=== PATIENT | female | born 1945 | race African-American/Black ===

== ENCOUNTER → 2019-10-14 09:30 | Outpatient (CLI) | payer MEDICARE, SELFPAY ==
--- NOTE | ~2019-10-14 | CT_ITS ---
EXAMINATION: CT chest wo con DATE: 10/14/2019 09:51 INDICATION: Persistent cough TECHNIQUE: Computed tomography (CT) of the chest was performed without intravenous contrast. Automate d exposure control and iterative reconstruction technique were employed. Exam dose: 611.12 mGy-cm to juanjo exam DLP. COMPARISON: 10/31/2017 CT chest FINDINGS: There is cardiomegaly. Coronary artery calcification is noted. No pericardial effusion. No pleural effusion. No thoracic aortic aneurysm or dissection. No hilar or mediastinal mass lesion or lymphadenopathy. Included upper abdominal structures are unremarkable except for diverticulosis of the splenic flexure of the colon. There are patchy groundglass infiltrates bilaterally, predominating in the lower lobes, with mild upp er lobe involvement, left greater than right. There is mild discoid atelectasis or scarring in the li ngula and to a greater extent the medial segment of the middle lobe. Diffuse idiopathic skeletal hyperostosis of the thoracolumbar spine. There is prominent degenerative disc disease in the lower cervical spine. IMPRESSION: Nonspecific bilateral mild patchy groundglass infiltrates; bilateral pneumonia is sugges gildardo. Pulmonary edema, allergic alveolitis, aspiration and less likely pulmonary hemorrhage among the differential diagnostic considerations Cardiomegaly, coronary artery atherosclerosis Reviewed, dictated and finalized at [facility]. Reviewed, dictated and finalized at location [facility]. IMPRESSION: Nonspecific bilateral mild patchy groundglass infiltrates; bilater al pneumonia is suggested. Pulmonary edema, allergic alveolitis, aspiration and less likely pulmonary hemorrhage among the differential diagnostic considerati ons Cardiomegaly, coronary artery atherosclerosis
== END ==
PROVIDERS: PCP Family Medicine; Visit Provider Family Medicine
DX: R05 Cough (principal); R91.8 Other nonspecific abnormal finding of lung field; I25.10 Atherosclerotic heart disease of native coronary artery without angina pectoris; I51.7 Cardiomegaly
CPT/HCPCS: 71250

== ENCOUNTER → 2019-10-24 16:27 | Outpatient (CLI) | payer MEDICARE, SELFPAY ==
--- NOTE | ~2019-10-24 | XR_ITS ---
XR lumbar spine 2-3V 10/24/2019 16:55 Indication: Polyneuropathy. Back pain. Procedure: 3 views of the lumbar spine Comparison: No prior studies for comparison. Findings: There is disc narrowing at L4-5 and L5-S1. There is lower lumbar facet hypertrophy with gra de 1 spondylolisthesis at L4-5 secondary to facet degenerative change. No acute fracture or traumatic malalignment. Pedicles intact. Sacral foramen are symmetric. Impression: 1: Mild-moderate lower lumbar spondylosis with grade 1 degenerative spondylolisthesis at L4-5. Reviewed, dictated and finalized at location [facility]. Impression: 1: Mild-moderate lower lumbar spondylosis with grade 1 degenerative spondylolis thesis at L4-5.
== END ==
PROVIDERS: PCP Family Medicine; Visit Provider Family Medicine
DX: G62.9 Polyneuropathy, unspecified (principal); M47.816 Spondylosis without myelopathy or radiculopathy, lumbar region
CPT/HCPCS: 72100

== ENCOUNTER → 2020-02-13 12:58 | Outpatient (CLI) | payer MEDICARE, SELFPAY ==
--- NOTE | ~2020-02-13 | MR_ITS ---
EXAMINATION: MR brain/brain stem wo con DATE: 02/13/2020 13:33 INDICATION: Transient cerebral ischemia. Dizziness. TECHNIQUE: Magnetic resonance imaging (MRI) of the brain and brainstem was performed without intraven ous contrast. Sequences included sagittal and axial T1-weighted FSE, axial diffusion-weighted FS EPI, axial T2*-weighted GRE, axial T2-weighted FLAIR Propeller, and axial T2-weighted Propeller. Apparent diffusion coefficient (ADC) maps were created. COMPARISON: None. FINDINGS: There are scattered areas of nonspecific increased T2-weighted signal intensity in the cere bral white matter. There is no intracranial hemorrhage, acute infarction, or abnormal intracranial ma ss lesion. The ventricles are normal in size. The paranasal sinuses are clear. The mastoid air cells are normal. The orbits are normal. IMPRESSION: 1. Mild nonspecific cerebral white matter disease, which likely represents chronic small vessel ische jessica disease. Reviewed, dictated and finalized at location [facility]. 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
== END ==
PROVIDERS: PCP Family Medicine; Visit Provider Family Medicine
DX: G45.9 Transient cerebral ischemic attack, unspecified (principal); R90.82 White matter disease, unspecified
CPT/HCPCS: 70551

== ENCOUNTER 2024-10-13 08:40 | Outpatient (CLI) | payer MEDICARE, SELFPAY ==
--- NOTE | ~2024-10-13 | DEXA_ITS ---
Bone Density Report Name: EVERARDO BELTRE Age: 78 Sex: Female Ethnicity: White Date of : 1945 Indication: postmenopausal; screening for osteoporosis; hysterectomy; Referring Provider: YVAN, KAYLEE Crawford Study: Bone densitometry was performed. Exam Date: October 13, 2024 Accession number: [id number] Bone Density: Region BMD T-score Z-score Classification AP Spine(L1-L4) 1.221 1.6 4.1 Normal Femoral Neck (Left) 0.803 -0.4 1.8 Normal Total Hip (Left) 1.109 1.4 3.3 Normal Femoral Neck (Right) 0.803 -0.4 1.8 Normal Total Hip (Right) 1.108 1.4 3.3 Normal Total Hip Mean 1.108 1.4 3.3 Normal World Health Organization criteria for BMD impression classify patients as: Normal (T-score at or above -1.0), Osteopenia (T-score between -1.0 and -2.5), or Osteoporosis (T-score at or below -2.5). 10-year Fracture Risk: FRAX not reported because: All T-scores for Spine Total, Hip Total, Femoral Neck at or above -1.0 Clinical Information Provided by Patient: Has used the following medications: Vitamin D Has the following medical conditions: Hysterectomy Patient maximum height was 61.0 Menopause Age: 43 Drinks caffeinated beverages Onset of menses at age 12 Number of children 4 Impression: The patient has normal bone mass. Discussion: BONE DENSITY IS ABOVE THE MINIMUM DESIRABLE LEVEL AT ALL SKELETAL SITES TESTED. This patient?s bone mineral density is above the minimum desirable level (T-score -1.0 or better) at all sites measured. The patient should follow a healthful lifestyle (good nutrition with adequate calcium and vitamin D, and appropriate weight-bearing exercise). Follow-Up: Consider repeating this study in 5 years or sooner if there is some new clinical indication. Reported by: GEOVANNA on 10/13/2024 10:31:00 AM. Reviewed, dictated and finalized at location A.
--- OUTSIDE RECORDS SUMMARY | 2024-10-13 08:45 | XMS_ITS | Encounter Summary ---
Author Organization [facility] Care Team Providers Care Pathology Supervisor Name Role Phone Júnior Hilton MD Primary Care Provider + Christine Denney MD Primary Care Provider + [phone] Sultan Maddy Baumann MD Unavailable [phone] Cari Ahumada NP Primary Care Provider + [phone] Christine Denney MD Primary Care Provider + [phone] Derik Santana MD Unavailable + [phone] Derik Santana MD Unavailable + [phone] Encounter Details Date Type Department Care Team (Latest Contact Info) Description 11/06/2017 Orders Only [facility] CLINCON[facility] ProviderLiane MD [address] [place] [id number] Social History Tobacco Use Types Packs/Day Years Used Date Smoking Tobacco: Never Assessed Comments Unknown Sex and Gender Information Value Date Recorded Sex Assigned at Not on file Legal 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 us Historical Provider Final Res ult documented in this encounter Visit Diagnoses Not on filedocumented in this encounter Additional Health Concerns Infection Onset Date Last Indicated Resolved Time COVID: Suspected 07/23/2019 07/23/2019 07/25/2019 3:02 PM CDT Respiratory Infection (EVIE), contact + droplet Comment:Automatically added due to negative COVID-19 result. 07/25/2019 07/25/2019 08/08/2019 3:0 5 AM CDT documented as of this encounter Care Teams Pathology Supervisor Relationship Specialty Start Date End Date Júnior Hilton MD PCP - General 04/26/17 10/20/18 Christine Denney MD [address] [address] PCP - General Family Medicine 10/21/18 07/22/19 Cari Ahumada NP [address] [place] [address] [address] PCP - General 07/23/19 07/07/20 Christine Denney MD [address] [address] PCP - General 07/08/20 Sultan Maddy Baumann MD [address] [place] [address] [address] Code Machine Operator Cardiovascular Disease 04/22/19 Derik Santana MD [address] [address] Consulting Physician Obstetrics and Gynecology 04/21/21 08/05/24 Derik Santana MD [address] [address] Consulting Physician Obstetrics and Gynecology 12/20/21 08/05/24 documented as of this encounter
--- OUTSIDE RECORDS SUMMARY | 2024-10-13 08:46 | XMS_ITS | Data Portability ---
Author Organization [facility] SIAugustinThebes H Address [address] [place] [address] Care Team Providers Care Compounding And Finishing Supervisor Name Role Phone CHRISTINE SANTORO Primary Care Provider GLENYS Potter Lead Manufacturing Engineer Assessment No assessment recorded. Plan of Treatment Reminders Order Date Submit Date Provider Last Modified By Organization Details Last Modified Time Details Appointments MEDICARE WELLNESS VISIT 2024 10:30A Davin Santoro MD Not available Not available Not available Lab CBC w/ auto diff 2024 025 [facility], [address], [place], [address], 07/17/2024 06:47:00 CBC w/ auto diff 2024 025 INTERFACE [facility], [address], [place], [address], 07/17/2024 06:47:00 HbA1c (hemoglob in A1c), blood 2023 024 RICHARD In-Office Order, Internal Use Only DO Not Attach Compendium DO Not Attach Compendium, Do Not Delete/merge, [id number] 01/15/2024 14:59:39 microalbu min, urine 2023 024 RICHARD In-Office Order, Internal Use Only DO Not Attach Compendium DO Not Attach Compendium, Do Not Delete/merge, [id number] 01/15/2024 16:00:54 HbA1c (hemoglob in A1c), blood 2023 025 [facility], [address], [address], [place], [address], 06/25/2024 06:13:16 lipid panel, serum 2023 025 [facility], [address], [address], [place], [address], 06/25/2024 06:13:12 BMP, serum or plasma 2023 025 [facility], [address], [address], [place], [address], 06/25/2024 06:13:13 TSH, serum or plasma 2023 025 [facility], [address], [address], [place], [address], 06/25/2024 06:13:15 CBC 2023 025 [facility], [address], [address], [place], [address], 06/25/2024 06:13:14 Referral gastroent erologist referral - she is intereste d in seeing GI for COLONOSCO PY and UPPER ENDOSCOPY -- she would like to see a provider locally 2024 025 RICHARD Boogie MD, [address], [address], [place], [address], 08/19/2024 18:55:48 home health referral 2023 024 RICHARD [facility], [address] [facility], [place], [address], 09/13/2023 18:31:46 Procedures None recorded. Surgeries None recorded. Imaging XR, cervical spine, 4 or 5 view 2024 025 [facility]), [address] [facility] [address] [place], [address], 08/04/2024 10:37:28 XR, lumbar spine, 2 view 2023 024 [facility] (Rad), [address] [place], [address], 08/31/2023 14:36:05 Medication Orders cyclobenz aprine 5 mg tablet 2024 025 [id number], [address] [place], [address], 08/01/2024 11:49:00 Mounjaro 5 mg/0.5 mL subcutane ous pen injector 2023 024 [facility], [address] [place], [address], 01/15/2024 12:37:51 baclofen 5 mg tablet 2023 024 [facility] [address] [place], [address], 09/02/2024 11:13:56 tramadol 50 mg tablet 2023 024 [facility], [address] [place], [address], 01/15/2024 12:21:34 lidocaine 5 % topical patch 2023 024 [facility], [address] [place], [address], 01/15/2024 12:21:03 ketorolac 60 mg/2 mL intramusc ular solution 2023 024 Not available 01/15/2024 12:20:41 Patient TargetsNo targets recorded. Patient Instructions Encounter Date Encounter Id Patient Instructions Last Modified By Organization Details Last Modified Time 08/30/2023 [id number] A healthy lifestyle: care instructions [email or web address] Not available 08/30/2023 17:09:54 01/15/2024 [id number] advance care planning: care instructions Not available 01/15/2024 12:37:49 preventing falls : care instructions Not available 01/15/2024 12:37:48 Quitting Tobacco : Care Instructions Not available 01/15/2024 12:37:48 Medicare Wellnes s Preventive Checklist Not available 01/15/2024 12:37:49 eating healthy foods: care instructions Not available 01/15/2024 12:37:48 AD8 Dementia Screening Interview Not available 01/15/2024 12:37:49 07/16/2024 [id number] learning about high blood pressure Not available 07/16/2024 13:37:49 08/01/2024 [id number] neck pain: care instructions Not available 08/01/2024 11:48:58 if not better -- will consider MRI imaging or CT scan imagine-- will start with conservative measures and home stretching and NSAIDs and muscle relaxer Not available 08/01/2024 11:52:07 Reason for Referral Home Health Referral for Lef t side sciatica Referring Physician: [facility], Encounter Date: 08/30/2023 Outdoor Illuminating Engineer Referral for Screening for malignant neoplasm of colon she is interested in seeing GI for COLONOSCOPY and UPPER ENDOSCOPY-- she would like to see a provider locally Referring Physician: Christine Santoro [facility], Encounter Date: 07/16/2024 Results Created Date Observation Date Name Description Value Unit Range Abnormal Flag Note LastModifiedBy Organization Detail LastModifiedTime 01/15/2001/15/2024 micro album in, urine Microalbumin 100 Not Available In-Of fice Order Internal Use Only DO Not Attach Compendium DO Not Attach Compendium, Do Not Delete/merge, [id number] 01/15/2024 09:11:53 01/15/2001/15/2024 HbA1c (hemo globi n A1c), blood HbA1c 5.6 Not Available In-Office Order Internal Use Only DO Not Attach Compendium DO Not Attach Compendium, Do Not Delete/merge, [id number] 01/15/2024 09:11:52 03/17/20 24 03/17/2024 URINA LYSIS , COMPL ETE W/REF APOORVA TO CULTU RE color YELLOW yellow normal Not Available [address], [address], 03/17/2024 23:27:23 03/17/20 24 03/17/2024 URINA LYSIS , COMPL ETE W/REF APOORVA TO CULTU RE appearance CLEAR clear normal Not Available [address], [address], 03/17/2024 23:27:23 03/17/20 24 03/17/2024 URINA LYSIS , COMPL ETE W/REF APOORVA TO CULTU RE specific gravity 1.009 1.001- 1.035 normal Not Available [address], [address], 03/17/2024 23:27:23 03/17/20 24 03/17/2024 URINA LYSIS , COMPL ETE W/REF APOORVA TO CULTU RE pH 6.5 5.0-8. 0 normal Not Available [address], [address], 03/17/2024 23:27:23 03/17/20 24 03/17/2024 URINA LYSIS , COMPL ETE W/REF APOORVA TO CULTU RE glucose 2+ negati ve abnormal Not Available [address], [address], 03/17/2024 23:27:23 03/17/20 24 03/17/2024 URINA LYSIS , COMPL ETE W/REF APOORVA TO CULTU RE bilirubin NEGATI VE negati ve normal Not Available [address], [address], 03/17/2024 23:27:23 03/17/20 24 03/17/2024 URINA LYSIS , COMPL ETE W/REF APOORVA TO CULTU RE ketones NEGATI VE negati ve normal Not Available [address] [address] [place], [address], 03/17/2024 23:27:23 03/17/20 24 03/17/2024 URINA LYSIS , COMPL ETE W/REF APOORVA TO CULTU RE occult blood NEGATI VE negati ve normal Not Available [address] [address] [place], [address], 03/17/2024 23:27:23 03/17/20 24 03/17/2024 URINA LYSIS , COMPL ETE W/REF APOORVA TO CULTU RE protein TRACE negati ve abnormal Not Available [address], [address], 03/17/2024 23:27:23 03/17/20 24 03/17/2024 URINA LYSIS , COMPL ETE W/REF APOOVRA TO CULTU RE nitrite NEGATI VE negati ve normal Not Available [address] [address] [place], [address], 03/17/2024 23:27:23 03/17/20 24 03/17/2024 URINA LYSIS , COMPL ETE W/REF APOORVA TO CULTU RE leukocyte esterase NEGATI VE negati ve normal Not Available [address] [address] [place], [address], 03/17/2024 23:27:23 03/17/20 24 03/17/2024 URINA LYSIS , COMPL ETE W/REF APOORVA TO CULTU RE WBC NONE SEEN /hpf < or = 5 normal Not Available [address] [address] [place], [address], 03/17/2024 23:27:23 03/17/20 24 03/17/2024 URINA LYSIS , COMPL ETE W/REF APOORVA TO CULTU RE RBC NONE SEEN /hpf < or = 2 normal Not Available [address] [address] [place], [address], 03/17/2024 23:27:23 03/17/20 24 03/17/2024 URINA LYSIS , COMPL ETE W/REF APOORVA TO CULTU RE squamous epithelial cells NONE SEEN /hpf < or = 5 normal Not Available [address] [place], [address], 03/17/2024 23:27:23 03/17/20 24 03/17/2024 URINA LYSIS , COMPL ETE W/REF APOORVA TO CULTU RE bacteria NONE SEEN /hpf none seen normal Not Available [address] [address] [place], [address], 03/17/2024 23:27:23 03/17/20 24 03/17/2024 URINA LYSIS , COMPL ETE W/REF APOORVA TO CULTU RE hyaline cast NONE SEEN /lpf none seen normal Not Available [address], [address], 03/17/2024 23:27:23 03/17/20 24 03/17/2024 URINA LYSIS , COMPL ETE W/REF APOORVA TO CULTU RE note This urine was nia zed for the prese nce of WBC, RBC, bacte clark, casts , and other forme d eleme nts. Only those eleme nts seen were repor gildardo. Not Available [address], [address], 03/17/2024 23:27:23 03/17/20 24 03/17/2024 REFLE XIVE URINE CULTU RE reflexive urine culture NO CULTU RE INDIC ATED Not Available [address], [address], 03/17/2024 23:27:24 06/25/19 25 06/25/2024 LIPID PANEL , STAND DELORES cholesterol, total 127 mg/dL <200 normal Not Available [address], [address], 06/25/2024 06:13:11 06/25/19 25 06/25/2024 LIPID PANEL , STAND DELORES HDL cholesterol 59 mg/dL > or = 50 normal Not Available [address], [address], 06/25/2024 06:13:11 06/25/1906/25/2024 LIPID PANEL , STAND DELORES triglyceride s 43 mg/dL <150 normal Not Available [address], [address], 06/25/2024 06:13:11 06/25/1906/25/2024 LIPID PANEL , STAND DELORES LDL-choleste rol 56 mg/dL _(vinicio c) normal Refer ence range : <100 Arline able range <100 mg/dL for prima ry preve ntion ; <70 mg/dL for patie nts with CHD or diabe tic patie nts with > or = 2 CHD risk facto rs. LDL-C is now calcu lated using the Ada n-Hop kins calcu audi n, which is a valid ated novel debrao d provi luisana jennifer r accur acy than the Fried renata equat ion in the estim ation of LDL-C . Ada sawyer SS et al. MU. 2013; 310(1 9): 2061- 2068 (http ://ed ucati on.[employer]. com/f aq/FA Q164) Not Available [address], [address], 06/25/2024 06:13:11 06/25/1906/25/2024 LIPID PANEL , STAND DELORES chol/HDLC ratio 2.2 (calc ) <5.0 normal Not Available [address], [address], 06/25/2024 06:13:11 06/25/19 25 06/25/2024 LIPID PANEL , STAND DELORES non HDL cholesterol 68 mg/dL _(vinicio c) <130 normal For patie nts with diabe george plus 1 major ASCVD risk facto r, treat ing to a non-H DL-C goal of <100 mg/dL (LDL- C of <70 mg/dL ) is robert brayo n. Not Available [address] [address] [place], [address], 06/25/2024 06:13:11 06/25/1906/25/2024 BASIC METAB OLIC PANEL glucose 82 mg/dL 65-99 normal Fasti ng refer ence inter ramírez Not Available [facility] [address] [address] [place], [address], 06/25/2024 06:13:13 06/25/1906/25/2024 BASIC METAB OLIC PANEL urea nitrogen (BUN) 13 mg/dL 7-25 normal Not Available [address], [address], 06/25/2024 06:13:13 06/25/1906/25/2024 BASIC METAB OLIC PANEL creatinine 0.91 mg/dL 0.60-1 .00 normal Not Available [address] [address] [place], [address], 06/25/2024 06:13:13 06/25/1906/25/2024 BASIC METAB OLIC PANEL eGFR 65 mL/mi n/1.7 3m2 > or = 60 normal Not Available [address] [address] [place], [address], 06/25/2024 06:13:13 06/25/1906/25/2024 BASIC METAB OLIC PANEL BUN/creatini ne ratio SEE NOTE: (calc ) 6-22 Not Repor gildardo: BUN and Creat inine are withi n refer ence range . Not Available [facility] [address] [address] [place], [address], 06/25/2024 06:13:13 06/25/1906/25/2024 BASIC METAB OLIC PANEL sodium 143 mmol/ L 135-14 6 normal Not Available [address], [address], 06/25/2024 06:13:13 06/25/1906/25/2024 BASIC METAB OLIC PANEL potassium 4.1 mmol/ L 3.5-5. 3 normal Not Available [address], [address], 06/25/2024 06:13:13 06/25/1906/25/2024 BASIC METAB OLIC PANEL chloride 108 mmol/ L 98-110 normal Not Available [address], [address], 06/25/2024 06:13:13 06/25/1906/25/2024 BASIC METAB OLIC PANEL carbon dioxide 27 mmol/ L 20-32 normal Not Available [address], [address], 06/25/2024 06:13:13 06/25/1906/25/2024 BASIC METAB OLIC PANEL calcium 9.6 mg/dL 8.6-10 .4 normal Not Available [address], [address], 06/25/2024 06:13:13 06/25/1906/25/2024 CBC (H/H, RBC, INDIC ES, WBC, PLT) white blood cell count 3.4 thous and/u L 3.8-10 .8 low Not Available [address], [address], 06/25/2024 06:13:14 06/25/1906/25/2024 CBC (H/H, RBC, INDIC ES, WBC, PLT) red blood cell count 4.99 jyoti on/uL 3.80-5 .10 normal Not Available [address], [address], 06/25/2024 06:13:14 06/25/1906/25/2024 CBC (H/H, RBC, INDIC ES, WBC, PLT) hemoglobin 12.6 g/dL 11.7-1 5.5 normal Not Available [address], [address], 06/25/2024 06:13:14 06/25/1906/25/2024 CBC (H/H, RBC, INDIC ES, WBC, PLT) hematocrit 41.1 % 35.0-4 5.0 normal Not Available [facility] [address], [address], 06/25/2024 06:13:14 06/25/1906/25/2024 CBC (H/H, RBC, INDIC ES, WBC, PLT) MCV 82.4 fL 80.0-1 00.0 normal Not Available [address], [address], 06/25/2024 06:13:14 06/25/1906/25/2024 CBC (H/H, RBC, INDIC ES, WBC, PLT) MCH 25.3 pg 27.0-3 3.0 low Not Available [address], [address], 06/25/2024 06:13:14 06/25/1906/25/2024 CBC (H/H, RBC, INDIC ES, WBC, PLT) MCHC 30.7 g/dL 32.0-3 6.0 low For adult s, a sligh t decre ase in the calcu lated MCHC value (in the range of 30 to 32 g/dL) is most likel y not clini allyson barnesi edvin t; kaushik er, it shoul d be inter prete d with cauti on in corre latio n with other red cell bridgett eters and the patie nt's clini vinicio condi tion. Not Available [address], [address], 06/25/2024 06:13:14 06/25/1906/25/2024 CBC (H/H, RBC, INDIC ES, WBC, PLT) RDW 13.2 % 11.0-1 5.0 normal Not Available [address], [address], 06/25/2024 06:13:14 06/25/1906/25/2024 CBC (H/H, RBC, INDIC ES, WBC, PLT) platelet count 138 thous and/u L 140-40 0 low Not Available [facility] [address], [address], 06/25/2024 06:13:14 06/25/1906/25/2024 CBC (H/H, RBC, INDIC ES, WBC, PLT) MPV 12.5 fL 7.5-12 .5 normal Not Available [address], [address], 06/25/2024 06:13:14 06/25/1906/25/2024 TSH W/REF APOORVA TO FT4 TSH w/reflex to FT4 1.65 mIU/L 0.40-4 .50 normal Not Available [address], [address], 06/25/2024 06:13:15 06/25/1906/25/2024 HEMOG LOBIN A1C hemoglobin A1C 5.8 %_of_ total _HGB <5.7 high For someo ne witho ut known diabe george, a hemog lobin A1c value betwe en 5.7% and 6.4% is consi stent with predi abete s and shoul d be confi rmed with a follo w-up test. For someo ne with known diabe george, a value <7% indic ates that their diabe george is well contr olled . A1c targe ts shoul d be indiv idual ized based on durat ion of diabe george, age, comor bid condi tions , and other consi derat ions. This assay resul t is consi stent with an incre ased risk of diabe george. Curre ntly, no conse nsus exist s tessy lieberman use of hemog lobin A1c for diagn osis of diabe george for child humble. Not Available [facility] [address] [place], [address], 06/25/2024 06:13:16 06/27/19 25 06/26/2024 Hepat ic funct ion 1999 panel - Serum or Plasm a protein [mass/volume ] in serum or plasma 7.1 text: 6.4 - 8.2 g/dL TOTAL PROTE IN S/P/B 7.1 6.4 - 8.2 G/DL 06/26 9:56 AM CDT [facility] Not Available Not Available 07/16/2024 12:06:46 06/27/19 25 06/26/2024 Hepat ic funct ion 2000 panel - Serum or Plasm a albumin [mass/volume ] in serum or plasma 3.2 text: 3.4 - 5.0 g/dL low ALBUM IN S/P/B 3.2 (L) 3.4 - 5.0 G/DL 06/26 9:56 AM CDT [facility] Not Available Not Available 07/16/2024 12:06:46 06/27/19 25 06/26/2024 Hepat ic funct ion 2000 panel - Serum or Plasm a bilirubin.to juanjo [mass/volume ] in serum or plasma 0.8 text: 0.2 - 1.2 mg/dL BILIR UBIN TOTAL S/P/B 0.8 0.2 - 1.2 MG/DL 06/26 9:56 AM CDT [facility] Not Available Not Available 07/16/2024 12:06:46 06/27/19 25 06/26/2024 Hepat ic funct ion 2000 panel - Serum or Plasm a bilirubin.co njugated [mass/volume ] in serum or plasma 0.2 text: 0.0 - 0.2 mg/dL BILIR UBIN DIREC T S/P/B 0.2 0.0 - 0.2 MG/DL 06/26 9:56 AM CDT [facility] Not Available Not Available 07/16/2024 12:06:46 06/27/19 25 06/26/2024 Hepat ic funct ion 1999 panel - Serum or Plasm a bilirubin.in direct [mass/volume ] in serum or plasma 0.6 text: 0.0 - 0.9 mg/dL BILIR UBIN INDIR ECT S/P/B 0.6 0.0 - 0.9 MG/DL 06/26 9:56 AM CDT [facility] Not Available Not Available 07/16/2024 12:06:46 06/27/19 25 06/26/2024 Hepat ic funct ion 1999 panel - Serum or Plasm a alkaline phosphatase [enzymatic activity/vol ume] in serum or plasma 157 U/L low: 50U/Lh igh: 136U/L high ALKAL INE PHOSP HATAS E S/P/B 157 (H) 50 - 136 U/L 06/26 9:56 AM CDT [facility] Not Available Not Available 07/16/2024 12:06:46 06/27/19 25 06/26/2024 Hepat ic funct ion 2000 panel - Serum or Plasm a aspartate aminotransfe rase [enzymatic activity/vol ume] in serum or plasma 25 U/L low: 15U/Lh igh: 37U/L AST 25 15 - 37 U/L 06/26 9:56 AM CDT [facility] Not Available Not Available 07/16/2024 12:06:46 06/27/19 25 06/26/2024 Hepat ic funct ion 2000 panel - Serum or Plasm a alanine aminotransfe rase [enzymatic activity/vol ume] in serum or plasma 36 U/L low: 14U/Lh igh: 55U/L ALT 36 14 - 55 U/L 06/26 9:56 AM CDT [facility] Not Available Not Available 07/16/2024 12:06:46 06/27/19 25 06/26/2024 Hepat ic funct ion 1999 panel - Serum or Plasm a albumin/glob ulin [mass ratio] in serum or plasma 0.8 text: 1.0 - 2.5 ratio low A/G RATIO 0.8 (L) 1.0 - 2.5 RATIO 06/26 9:56 AM CDT [facility] Not Available Not Available 07/16/2024 12:06:46 06/27/19 25 06/26/2024 Hepat ic funct ion 1999 panel - Serum or Plasm a interpretati on and review of laboratory results Abnorm al Not Available Not Available 12:06:46 07/17/19 25 07/17/2024 CBC (INCL UDES DIFF/ PLT) white blood cell count 3.0 thous and/u L 3.8-10 .8 low Not Available [address], [address], 07/17/2024 06:47:00 07/17/1907/17/2024 CBC (INCL UDES DIFF/ PLT) red blood cell count 5.06 jyoti on/uL 3.80-5 .10 normal Not Available [address], [address], 07/17/2024 06:47:00 07/17/1907/17/2024 CBC (INCL UDES DIFF/ PLT) hemoglobin 12.6 g/dL 11.7-1 5.5 normal Not Available [facility] [address], [address], 07/17/2024 06:47:00 07/17/1907/17/2024 CBC (INCL UDES DIFF/ PLT) hematocrit 40.8 % 35.0-4 5.0 normal Not Available [address], [address], 07/17/2024 06:47:00 07/17/19 25 07/17/2024 CBC (INCL UDES DIFF/ PLT) MCV 80.6 fL 80.0-1 00.0 normal Not Available [address], [address], 07/17/2024 06:47:00 07/17/1907/17/2024 CBC (INCL UDES DIFF/ PLT) MCH 24.9 pg 27.0-3 3.0 low Not Available [address], [address], 07/17/2024 06:47:00 07/17/1907/17/2024 CBC (INCL UDES DIFF/ PLT) MCHC 30.9 g/dL 32.0-3 6.0 low For adult s, a sligh t decre ase in the calcu lated MCHC value (in the range of 30 to 32 g/dL) is most likel y not clini allyson signi edvin t; kaushik er, it shoul d be inter prete d with cauti on in corre lat n with other red cell bridgett eters and the patie nt's clini vinicio condi tion. Not Available [facility] [address], [address], 07/17/2024 06:47:00 07/17/1907/17/2024 CBC (INCL UDES DIFF/ PLT) RDW 12.9 % 11.0-1 5.0 normal Not Available [facility] [address], [address], 07/17/2024 06:47:00 07/17/1907/17/2024 CBC (INCL UDES DIFF/ PLT) platelet count 133 thous and/u L 140-40 0 low Not Available [facility] [address], [address], 07/17/2024 06:47:00 07/17/1907/17/2024 CBC (INCL UDES DIFF/ PLT) MPV 13.0 fL 7.5-12 .5 high Not Available [facility] [address] [address], [place], [address], 07/17/2024 06:47:00 07/17/19 25 07/17/2024 CBC (INCL UDES DIFF/ PLT) absolute neutrophils 1416 cells /uL 1500-7 800 low Not Available [address], [address], 07/17/2024 06:47:00 07/17/19 25 07/17/2024 CBC (INCL UDES DIFF/ PLT) absolute lymphocytes 978 cells /uL 850-39 00 normal Not Available [address], [address], 07/17/2024 06:47:00 07/17/1907/17/2024 CBC (INCL UDES DIFF/ PLT) absolute monocytes 384 cells /uL 200-95 0 normal Not Available [address], [address], 07/17/2024 06:47:00 07/17/19 25 07/17/2024 CBC (INCL UDES DIFF/ PLT) absolute eosinophils 201 cells /uL 15-500 normal Not Available [address], [address], 07/17/2024 06:47:00 07/17/1907/17/2024 CBC (INCL UDES DIFF/ PLT) absolute basophils 21 cells /uL 0-200 normal Not Available [address], [address], 07/17/2024 06:47:00 07/17/19 25 07/17/2024 CBC (INCL UDES DIFF/ PLT) neutrophils 47.2 % normal Not Available [address], [address], 07/17/2024 06:47:00 07/17/19 25 07/17/2024 CBC (INCL UDES DIFF/ PLT) lymphocytes 32.6 % normal Not Available [facility] [address] [address] [place], [address], 07/17/2024 06:47:00 07/17/19 25 07/17/2024 CBC (INCL UDES DIFF/ PLT) monocytes 12.8 % normal Not Available [facility] [address] [address] [place], [address], 07/17/2024 06:47:00 07/17/19 25 07/17/2024 CBC (INCL UDES DIFF/ PLT) eosinophils 6.7 % normal Not Available [facility] [address] [address] [place], [address], 07/17/2024 06:47:00 07/17/1907/17/2024 CBC (INCL UDES DIFF/ PLT) basophils 0.7 % normal Not Available [facility] [address] [address] [place], [address], 07/17/2024 06:47:00 08/14/19 25 08/13/2024 SJS SURGI VINICIO PATHO LOGY sjs surgical pathology [facility] Hos[facility] juanjo Depar tment of Labor atory Medic ine [address] [facility] [place] [address] Tele juliana: , exten mike [id number] Patho logy Repor t Surgi vinicio Patho logy Repor t Name: KEVIN ESTEVEZ Speci men #: [id number] Age: [id number] (Age: 78) Locat ion: [facility] Sex: F Proce dure Date: 2024 Hospi juanjo #: [id number] Date Recei blu: 2024 Date Repor gildardo: 2024 Provi wendi: GIUSE PPE SHAN RTI [facility] e: Gastr ic biops ies Clini vinicio Histo ry: Scree corinna. Epiga stric disco mfort . Posto perat markel Diagn osis: Rule out H. pylor i. FINAL DIAGN OSIS: Stoma ch, biops ies: - Gastr ic mucos a with focal intes tinal metap lasia and featu res of react markel gastr opath y, see comme nt - Immun ohist ochem istry Helic obact er pylor i is negat markel Diagn osis Comme nt: Immun ohist ochem istry for gastr in is posit markel indic ating an antra l locat ion of this biops y. Immun ohist ochem istry for chrom ogran in demon strat es no abnor malit ies. These findi ngs demon strat e no evide nce of autoi mmune gastr opath y. Gross Descr iptio n: Recei blu in forma newton, label ed with a patie nt label and as linda greg antru m biops y is a 0.2 cm piece of chapa tissu e. The speci men is entir isaura submi tted in casse tte 1. All immun ohist ochem ical and histo chemi vinicio tests were devel oped by and perfo rmed at [facility] , [address] [place] [address], [place] [address] . All tests repor gildardo here have not been clear ed or appro blu by the [place] Food and Drug Admin istra tion (FDA) . This labor atory is regul ated under CLIA as quali fied to perfo rm high- compl exity testi ng. These tests are used for clini vinicio purpo ses. They shoul d not be regar ded as inves tigat ional or for resea rch. Posit markel and negat markel contr ols show appro priat e react ivity . Gross exami natio n (when appli cable ) was perfo rmed at [facility], [address] [facility], [place] [address] . This case was inter prete d and kandy d out at [facility], [address] [place], [place] [address], [place] [address] . Skylar ctron icall y Kandy d Out CHING ADAN MD Not Available [facility] [address], [place], [address], 08/20/2024 10:40:27 08/14/19 25 08/20/2024 Patho logy study pathology study [facility] Dep[facility] [address] [place] [address] Teleph one: , extens ion [id number] Pathol ogy Report Surgic al Pathol ogy Report Name: GABRIEL TALLEY Specim en #: [id number] Age: [birth year] (Age: 78) Locati on: [facility] Sex: F Proced ure Date: Hospit al #: [id number] Date Receiv ed: Date Report ed: 025 Provid er: GIUSEP CHRISSY CARNES MD Source : Gastri c biopsi es Clinic al Histor y: Screen ing. Epigas tric discom fort. Postop erativ e Diagno sis: Rule out H. pylori . FINAL DIAGNO SIS: Stomac h, biopsi es: - Gastri c mucosa with focal intest inal metapl dashawn and featur es of reacti ve gastro karla, see commen t - Immuno histoc hemist ry Helico bacter pylori is negati ve Diagno sis Commen t: Immuno histoc hemist ry for gastri n is positi ve indica ting an antral locati on of this biopsy . Immuno histoc hemist ry for chromo granin demons trates no abnorm alitie s. These findin gs demons trate no eviden ce of autoim mune gastro karla. Gross Descri ption: Receiv ed in formal in, labele d with a patien t label and as gastr ic antrum biopsy is a 0.2 cm piece of chapa tissue . The specim en is entire ly submit gildardo in casset te 1. All immuno histoc hemica l and histoc hemica l tests were develo ped by and perfor med at [facility], [address] [place] [address]. All tests report ed here have not been cleare d or approv ed by the U.S. Food and Drug Admini strati on (FDA). This labora tory is regula gildardo under CLIA as qualif ied to perfor m high-c omplex ity testin g. These tests are used for clinic al purpos es. They should not be regard ed as invest igatio nal or for resear ch. Positi ve and negati ve contro ls show approp riate reacti vity. Gross examin ation (when applic able) [facility] [address] [place] [address]. This case was interp reted and signed out at [facility], [address] [place] [address]. Elec tronic ally Signed Out CHING ADAN MD PATHO LOGY [facility] juanjo Depar tment of Labor atory Medic ine [address] [facility] [address] [place], [place] [address] Telep juliana: , exten mike [id number] Patho logy Repor t Surgi vinicio Patho logy Repor t Name: KEVIN ESTEVEZ Speci men #: [id number] Age: [birth year] (Age: 78) Locat ion: [facility] Sex: F Proce dure Date: 2024 Hospi juanjo #: [id number] Date Recei blu: 2024 Date Repor gildardo: 2024 Provi wendi: GIUSE PPE SHAN ANTOINE MD [facility] e: Gastr ic biops ies Clini vinicio Histo ry: Scree corinna. Epiga stric disco mfort . Posto perat markel Diagn osis: Rule out H. pylor i. FINAL DIAGN OSIS: Stoma ch, biops ies: - Gastr ic mucos a with focal intes tinal metap lasia and featu res of react markel gastr opath y, see comme nt - Immun ohist ochem istry Helic obact er pylor i is negat markel Diagn osis Comme nt: Immun ohist ochem istry for gastr in is posit markel indic ating an antra l locat ion of this biops y. Immun ohist ochem istry for chrom ogran in demon strat es no abnor malit ies. These findi ngs demon strat e no evide nce of autoi mmune gastr opath y. Gross Descr iptio n: Recei blu in forma newton, label ed with a patie nt label and as linda greg antru m biops y is a 0.2 cm piece of chapa tissu e. The speci men is entir isaura submi tted in casse tte 1. All immun ohist ochem ical and histo chemi vinicio tests were devel oped by and perfo rmed at [facility] , [address] [place] [address], [place] [address] . All tests repor gildardo here have not been clear ed or appro blu by the U.S. Food and Drug Admin istra tion (FDA) . This labor atory is regul ated under CLIA as quali fied to perfo rm high- compl exity testi ng. These tests are used for clini vinicio purpo ses. They shoul d not be regar ded as inves tigat ional or for resea rch. Posit markel and negat markel contr ols show appro priat e react ivity . Gross exami natio n (when appli cable ) was perfo rmed at [facility], [address] [facility], [facility], [place] [address] . This case was inter prete d and kandy d out at [facility], [address] [place] [address] . Skylar ctron icall y Kandy d Out CHING ADAN MD [facility] Not Available Not Available 08/20/2024 11:38:36 08/29/19 25 08/29/2024 CBC (INCL UDES DIFF/ PLT) white blood cell count 3.4 thous and/u L 3.8-10 .8 low Not Available [facility] [address], [address], 08/29/2024 06:46:07 08/29/1908/29/2024 CBC (INCL UDES DIFF/ PLT) red blood cell count 5.02 jyoti on/uL 3.80-5 .10 normal Not Available [facility] [address], [address], 08/29/2024 06:46:07 08/29/19 25 08/29/2024 CBC (INCL UDES DIFF/ PLT) hemoglobin 12.6 g/dL 11.7-1 5.5 normal Not Available [facility] [address], [address], 08/29/2024 06:46:07 08/29/19 25 08/29/2024 CBC (INCL UDES DIFF/ PLT) hematocrit 41.1 % 35.0-4 5.0 normal Not Available [facility] [address], [address], 08/29/2024 06:46:07 08/29/1908/29/2024 CBC (INCL UDES DIFF/ PLT) MCV 81.9 fL 80.0-1 00.0 normal Not Available [facility] [address], [address], 08/29/2024 06:46:07 08/29/1908/29/2024 CBC (INCL UDES DIFF/ PLT) MCH 25.1 pg 27.0-3 3.0 low Not Available [facility] [address], [address], 08/29/2024 06:46:07 08/29/1908/29/2024 CBC (INCL UDES DIFF/ PLT) MCHC 30.7 g/dL 32.0-3 6.0 low For adult s, a sligh t decre ase in the calcu lated MCHC value (in the range of 30 to 32 g/dL) is most likel y not clini allyson signi edvin t; kaushik er, it shoul d be inter prete d with cauti on in corre latio n with other red cell bridgett eters and the patie nt's clini vinicio condi tion. Not Available [facility] [address], [address], 08/29/2024 06:46:07 08/29/19 25 08/29/2024 CBC (INCL UDES DIFF/ PLT) RDW 13.8 % 11.0-1 5.0 normal Not Available [facility] [address], [address], 08/29/2024 06:46:07 08/29/19 25 08/29/2024 CBC (INCL UDES DIFF/ PLT) platelet count 139 thous and/u L 140-40 0 low Not Available [facility] [address], [address], 08/29/2024 06:46:07 08/29/19 25 08/29/2024 CBC (INCL UDES DIFF/ PLT) MPV 13.3 fL 7.5-12 .5 high Not Available [address], [address], 08/29/2024 06:46:07 08/29/19 25 08/29/2024 CBC (INCL UDES DIFF/ PLT) absolute neutrophils 1635 cells /uL 1500-7 800 normal Not Available [facility] [address], [address], 08/29/2024 06:46:07 08/29/19 25 08/29/2024 CBC (INCL UDES DIFF/ PLT) absolute lymphocytes 1163 cells /uL 850-39 00 normal Not Available [facility] [address], [address], 08/29/2024 06:46:07 08/29/19 25 08/29/2024 CBC (INCL UDES DIFF/ PLT) absolute monocytes 330 cells /uL 200-95 0 normal Not Available [facility] [address], [address], 08/29/2024 06:46:07 08/29/19 25 08/29/2024 CBC (INCL UDES DIFF/ PLT) absolute eosinophils 231 cells /uL 15-500 normal Not Available [facility] [address], [address], 08/29/2024 06:46:07 08/29/19 25 08/29/2024 CBC (INCL UDES DIFF/ PLT) absolute basophils 41 cells /uL 0-200 normal Not Available [facility] [address], [address], 08/29/2024 06:46:07 08/29/19 25 08/29/2024 CBC (INCL UDES DIFF/ PLT) neutrophils 48.1 % normal Not Available [facility] [address], [address], 08/29/2024 06:46:07 08/29/19 25 08/29/2024 CBC (INCL UDES DIFF/ PLT) lymphocytes 34.2 % normal Not Available [facility] [address], [address], 08/29/2024 06:46:07 08/29/19 25 08/29/2024 CBC (INCL UDES DIFF/ PLT) monocytes 9.7 % normal Not Available [facility] [address], [address], 08/29/2024 06:46:07 08/29/19 25 08/29/2024 CBC (INCL UDES DIFF/ PLT) eosinophils 6.8 % normal Not Available [facility] [address], [address], 08/29/2024 06:46:07 08/29/19 25 08/29/2024 CBC (INCL UDES DIFF/ PLT) basophils 1.2 % normal Not Available [facility] [place] [address] [address], [place], [address], 08/29/2024 06:46:07 09/30/1909/30/2024 CBC (INCL UDES DIFF/ PLT) white blood cell count 3.2 thous and/u L 3.8-10 .8 low Not Available [address], [address], 09/30/2024 06:12:42 09/30/1909/30/2024 CBC (INCL UDES DIFF/ PLT) red blood cell count 4.84 jyoti on/uL 3.80-5 .10 normal Not Available [facility] [address], [address], 09/30/2024 06:12:42 09/30/1909/30/2024 CBC (INCL UDES DIFF/ PLT) hemoglobin 12.4 g/dL 11.7-1 5.5 normal Not Available [address], [address], 09/30/2024 06:12:42 09/30/1909/30/2024 CBC (INCL UDES DIFF/ PLT) hematocrit 40.2 % 35.0-4 5.0 normal Not Available [address], [address], 09/30/2024 06:12:42 09/30/1909/30/2024 CBC (INCL UDES DIFF/ PLT) MCV 83.1 fL 80.0-1 00.0 normal Not Available [facility] [address], [address], 09/30/2024 06:12:42 09/30/1909/30/2024 CBC (INCL UDES DIFF/ PLT) MCH 25.6 pg 27.0-3 3.0 low Not Available [facility] [address], [address], 09/30/2024 06:12:42 09/30/1909/30/2024 CBC (INCL UDES DIFF/ PLT) MCHC 30.8 g/dL 32.0-3 6.0 low For adult s, a sligh t decre ase in the calcu lated MCHC value (in the range of 30 to 32 g/dL) is most likel y not clini allyson signi ficguerrero t; kaushik er, it shoul d be inter prete d with cauti on in corre latio n with other red cell bridgett eters and the patie nt's clini vinicio condi tion. Not Available [facility] [address], [address], 09/30/2024 06:12:42 09/30/1909/30/2024 CBC (INCL UDES DIFF/ PLT) RDW 13.8 % 11.0-1 5.0 normal Not Available [facility] [address], [address], 09/30/2024 06:12:42 09/30/1909/30/2024 CBC (INCL UDES DIFF/ PLT) platelet count 126 thous and/u L 140-40 0 low Not Available [facility] [address], [address], 09/30/2024 06:12:42 09/30/1909/30/2024 CBC (INCL UDES DIFF/ PLT) MPV 13.0 fL 7.5-12 .5 high Not Available [facility] [address], [address], 09/30/2024 06:12:42 09/30/1909/30/2024 CBC (INCL UDES DIFF/ PLT) absolute neutrophils 1424 cells /uL 1500-7 800 low Not Available [facility] [address], [address], 09/30/2024 06:12:42 09/30/1909/30/2024 CBC (INCL UDES DIFF/ PLT) absolute lymphocytes 1120 cells /uL 850-39 00 normal Not Available [address], [address], 09/30/2024 06:12:42 09/30/1909/30/2024 CBC (INCL UDES DIFF/ PLT) absolute monocytes 394 cells /uL 200-95 0 normal Not Available [facility] [address], [address], 09/30/2024 06:12:42 09/30/19 25 09/30/2024 CBC (INCL UDES DIFF/ PLT) absolute eosinophils 243 cells /uL 15-500 normal Not Available [address], [address], 09/30/2024 06:12:42 09/30/1909/30/2024 CBC (INCL UDES DIFF/ PLT) absolute basophils 19 cells /uL 0-200 normal Not Available [address], [address], 09/30/2024 06:12:42 09/30/1909/30/2024 CBC (INCL UDES DIFF/ PLT) neutrophils 44.5 % normal Not Available [address], [address], 09/30/2024 06:12:42 09/30/1909/30/2024 CBC (INCL UDES DIFF/ PLT) lymphocytes 35.0 % normal Not Available [facility] [address], [address], 09/30/2024 06:12:42 09/30/19 25 09/30/2024 CBC (INCL UDES DIFF/ PLT) monocytes 12.3 % normal Not Available [facility] [address], [address], 09/30/2024 06:12:42 09/30/19 25 09/30/2024 CBC (INCL UDES DIFF/ PLT) eosinophils 7.6 % normal Not Available [facility] [address] [place], [address], 09/30/2024 06:12:42 09/30/19 25 09/30/2024 CBC (INCL UDES DIFF/ PLT) basophils 0.6 % normal Not Available [facility] [address] [place], [address], 09/30/2024 06:12:42 08/31/19 24 08/30/2023 XR, lumba r spine , 2 view No observ ation record ed. [address] (Rad) [address] [facility] [place], [address], 08/31/2023 16:38:12 08/31/19 24 08/30/2023 XR, lumba r spine , 2 view No observ ation record ed. [address] ([facility]) [address] [place] [address] [place], [address], 09/07/2023 13:18:06 12/25/19 24 12/25/2023 MAMMO , scree corinna, bilat eral No observ ation record ed. [facility] [place], [address], 12/27/2023 16:15:28 08/04/19 25 08/03/2024 XR, cervi vinicio spine , 4 or 5 view No observ ation record ed. [facility] [address] [place] [address] [place], [address], 08/06/2024 17:14:43 Result Notes None recorded. Problems Name Problem SNOMED Code Status Onset Date Resolution Date Notes Provider Name and Address Organization Details Recorded Time Marla valencia sion [id number] Completed 201306/11/2014 Location : None;Sev erity: Moderate ;Progres s: Stable;A dded By: Christine Santoro;Add to Current Problems : NO Not Available [facility] 7 00:18:38 Low back pain 212830771 Active 2013 Location : None;Sev erity: Moderate ;Progres s: Stable;A dded By: Joy Becerra;Add to Current Problems : NO Christine Santoro MD Attn: Accounting ,[address] [place], [place], [address] [place] [address] , [facility] 3 13:21:36 Temporom andibula r joint disorder [id number] Completed 201406/20/2014 Location : None;Sev erity: Moderate ;Progres s: Stable;A dded By: Christine Santoro;Add to Current Problems : YES Not Available [facility] 7 00:18:38 Long-ter m drug therapy Completed 201412/13/2016 Location : None;Sev erity: Moderate ;Progres s: Stable;A dded By: Christine Santoro;Add to Current Problems : YES MILEY Carter Attn: Accounting ,[address] [place], [place], [address] [place] [address] , [facility] 7 13:44:13 Vitamin D deficien cy 80485766 Active 2014 Location : None;Sev erity: Moderate ;Progres s: Stable;A dded By: Christine Santoro;Add to Current Problems : YES Christine Santoro MD Attn: Accounting ,[address] [place], [place], [address] [place] [address] , [facility] 3 13:20:28 Shoulder joint pain 094505610 Completed 201407/12/2014 Location : None;Sev erity: Moderate ;Progres s: Stable;A dded By: Cony Baugh;Add to Current Problems : YES Not Available [facility] 7 00:18:39 Precordi al pain 98292361 Completed 201407/12/2014 Location : None;Sev erity: Moderate ;Progres s: Stable;A dded By: Cony Baugh;Add to Current Problems : YES Not Available [facility] 7 00:18:39 Pure hypercho lesterol emia 461357438 Active 2014 Location : None;Sev erity: Moderate ;Progres s: Stable;A dded By: Perla Garcia i;A dd to Current Problems : YES Christine Santoro MD Attn: Accounting ,[address] [facility], [place], [place], [address] [place] [address] , [facility] 3 13:20:28 Essentia l hyperten mike 44399398 Active 2014 Location : None;Sev erity: Moderate ;Progres s: Stable;A dded By: Perla Garcia i;A dd to Current Problems : YES Christine Santoro MD Attn: Accounting ,[address] [facility], [place], [place], [address] [place] [address] , [facility] 3 13:21:36 Thromboc ytopenic disorder 812842986 Completed 201402/02/2015 Location : None;Sev erity: Moderate ;Progres s: Stable;A dded By: Christine Santoro;Add to Current Problems : YES Christine Santoro MD Attn: Accounting ,[address] [facility], [place], [address] [place] [address] , [facility] 3 12:43:19 Pneumoco ccal pneumoni a 901176935 Completed 201511/08/2016 Location : None;Sev erity: Moderate ;Progres s: Stable;A dded By: Perla Garcia i;A dd to Current Problems : YES Christine Santoro MD Attn: Accounting ,[address] [facility], [place], [address] [place] [address] , [facility] 7 18:05:24 Burn [id number] Completed 201505/08/2016 Location : None;Sev erity: Moderate ;Progres s: Stable;A dded By: Perla Garcia i;A dd to Current Problems : YES Christine Santoro MD Attn: Accounting ,[address] [facility], [place], [address] [place] [address] , [facility] 7 13:38:15 Examinat ion for suspecte d tubercul osis Completed 201501/15/2016 Location : None;Sev erity: Moderate ;Progres s: Stable;A dded By: Brenda Talley;Add to Current Problems : NO Not Available [facility] 7 00:18:39 Thromboc ytopenic disorder 219767181 Active 2016 Location : None;Sev erity: Moderate ;Progres s: Stable;A dded By: Christine Santoro;Add to Current Problems : YES Christine Santoro MD Attn: Accounting ,[address] [place], [address] , [facility] 3 13:20:28 Type 2 diabetes mellitus 31458258 Active 2016 Christine Santoro MD Attn: Accounting ,[address] [place], [address] , [facility] 4 09:08:53 Sleep apnea 91876765 Active 2017 Christine Santoro MD Attn: Accounting ,[address] [place], [address] , [facility] 3 13:20:28 Cardiome kerry 5159975 Active 2017 Christine Santoro MD Attn: Accounting ,[address] [place], [address] , [facility] 3 13:20:28 Epigastr ic discomfo rt 286070957 Active 2022 Christine Santoro MD Attn: Accounting ,[address] [place], [address] , [facility] 3 13:32:01 Problem Notes None recorded. Procedures Surgical History Date Name Laterality Status Provider Name and Address Organization Details Recorded Time 06/21/19 23 excision of lipoma completed Christine Santoro MD Attn: Accounting,[address] [place], [address], [place] [facility] 06/22/2022 19:32:56 06/17/19 22 radical hysterectomy completed Christine Santoro MD Attn: Accounting,[address] [facility], [place], [address], [facility] 07/05/2021 11:20:11 04/21/19 22 Endometrial Biopsy completed Christine Santoro MD Attn: Accounting,[address] [facility], [place], [address], [facility] 04/22/2021 16:26:36 10/26/19 18 Breast Surgery completed Christine Santoro MD Attn: Accounting,[address] [facility], [place], [address], [facility] 10/25/2017 15:33:27 09/08/19 18 Breast Biopsy completed Christine Santoro MD Attn: Accounting,[address] [facility], [place], [address], [facility] 09/10/2017 22:38:22 Joint Replacement completed Amisha Siddiqi [place] 02/14/2016 15:07:15 Caesarean Section completed Michelle Reyna [place] 11/06/2016 11:10:33 Imaging Results None recorded. Procedure Notes None recorded. Medical Equipment None Reported. Allergies Allergen ID Allergen Name Allergen Category Reaction Reaction Severity Criticality Documentation Date Start Date Code Code System Note Provider Name and Address Organization Details Recorded Time 87943 valsartan medicatio n lighthead edness Not available Not available 04/13/20162016 89128 RxNorm Wendy wilson, [place] - [place] 7 10:04:09 Medications Name Sig Start Date Stop Date Status Note LastModified by Organization Details LastModified Time Prescript ion - New 01/11 completed Not Available Not Available Not Available cyclobenz aprine 10 mg tablet 08/01 completed Not Available Not Available Not Available amoxicill in 500 mg capsule TAKE 2 CASPULES BY MOUTH NOW, THEN 1 3 TIMES A DAY UNTIL FINISHED 07/12 completed Not Available Not Available Not Available silver sulfadiaz ine 1 % topical cream Apply to the affected area bid, prn to burn 02/13 completed Not Available Not Available Not Available neomycin- polymyxin -hydrocor t 3.5 mg/mL-10, 000 unit/mL-1 % ear solution PLACE 3 DROPS IN AFFECTED EAR(S) 4 TIMES A DAY FOR 10 DAYS 07/12 completed Not Available Not Available Not Available carvedilo l 25 mg tablet TAKE 1 TABLET BY MOUTH TWICE A DAY active Not Available Not Available No t Available clonidine HCl 0.1 mg tablet TAKE 1 TABLET BY MOUTH EVERY 8 HOURS NEEDED FOR BLOOD PRESSURE GREATER THAN 160/90 12/05 completed Not Available Not Available Not Available prednison e 10 mg tablet 09/18 completed Not Available Not Available Not Available Klor-Con 20 mEq tablet,ex tended release Take 1 tablet every day by oral route. 07/22 completed Not Available Not Available Not Available tizanidin e 2 mg tablet TAKE 1 TABLET BY MOUTH EVERY 8 HOURS NEEDED *MAX 12 TABS/DAY active Not Available Not Available No t Available cetirizin e 10 mg tablet TAKE 1 TABLET BY MOUTH EVERY DAY 2019 active Not Available Not Available Not Avai lable azithromy monet 250 mg tablet TAKE 2 TABLETS BY MOUTH TODAY, THEN TAKE 1 TABLET DAILY FOR 4 DAYS DIRECTED 07/12 completed Not Available Not Available Not Available indapamid e 2.5 mg tablet TAKE 1 TABLET BY MOUTH EVERY DAY IN THE MORNING 01/11 completed Not Available Not Available Not Available ibuprofen 800 mg tablet 02/13 completed Not Available Not Available Not Available tizanidin e 4 mg tablet Take 1/2 - 1 tab po q 12 hours prn back spasms 12/29 completed RxNorm: 352766;A llow Substitu tion: True Not Available Not Available Not Available fluconazo le 150 mg tablet Take 1 tablet by oral route as directed for 1 day. 2023 active Not Available Not Available Not Avai lable clarithro mycin 500 mg tablet 02/13 completed Not Available Not Available Not Available hydrocodo ne 5 mg-acetam inophen 325 mg tablet 11/05 completed Not Available Not Available Not Available meloxicam 15 mg tablet TAKE 1 TABLET BY MOUTH ONCE DAILY active Not Available Not Available No t Available famotidin e 40 mg tablet TAKE 1 TABLET BY MOUTH EVERY DAY FOR 10 DAYS active Not Available Not Available No t Available prednison e 20 mg tablet TAKE 3 TABLETS AT ONCE ON DAYS 1-2, TAKE 2 TABLETS AT ONCE ON DAYS 3-4, TAKE 1 TABLET ON DAYS 5-6 08/29 completed Not Available Not Available Not Available topiramat e 25 mg tablet 02/11 completed Not Available Not Available Not Available metronida zole 500 mg tablet 05/30 completed Not Available Not Available Not Available amlodipin e 5 mg tablet TAKE 1 TABLET BY MOUTH EVERY DAY 04/06 completed Not Available Not Available Not Available sulfameth oxazole 800 mg-trimet hoprim 160 mg tablet TAKE 1 TABLET BY MOUTH TWICE A DAY FOR 3 DAYS 05/30 completed Not Available Not Available Not Available aspirin 81 mg tablet,de layed release Take 1 tablet every day by oral route. active Not Available Not Available No t Available tramadol 50 mg tablet Take 1 tablet every 6 hours by oral route as needed for 10 days, for BACK PAIN. 2023 active Not Available Not Available Not Avai lable meloxicam 7.5 mg tablet TAKE 1 TABLET BY MOUTH EVERY DAY NEEDED 10/29 completed Not Available Not Available Not Available oxycodone -acetamin ophen 5 mg-325 mg tablet TAKE 1 TABLET BY MOUTH EVERY 4 HOURS NEEDED FOR PAIN 07/20 completed Not Available Not Available Not Available Tessalon Perles 100 mg capsule take 1 or 2 every 8 hours as needed for the cough 02/11 completed RxNorm: 238964;A llow Substitu tion: True Not Available Not Available Not Available terbinafi ne HCl 250 mg tablet TAKE 1 TABLET BY MOUTH EVERY DAY active from podiatri st Not Available Not Available Not Available alprazola m 0.5 mg tablet Take 1 tablet twice a day by oral route as needed for 1 day. 10/28 completed Not Available Not Available Not Available amoxicill in 875 mg tablet TAKE 1 TABLET BY MOUTH EVERY 12 HOURS FOR 7 DAYS 12/27 completed Not Available Not Available Not Available famotidin e 20 mg tablet TAKE 1 TABLET BY MOUTH EVERY OTHER DAY 12/05 completed Not Available Not Available Not Available lorazepam 2 mg tablet 02/13 completed Not Available Not Available Not Available meclizine 25 mg tablet TAKE 1 TABLET BY MOUTH THREE TIMES A DAY NEEDED 07/12 completed Not Available Not Available Not Available amlodipin e 10 mg tablet TAKE 1 TABLET BY MOUTH EVERY DAY DIRECTED active Not Available Not Available No t Available cephalexi n 500 mg capsule TAKE 1 CAPSULE BY MOUTH THREE TIMES A DAY 07/16 completed Not Available Not Available Not Available ferrous sulfate 325 mg (65 mg iron) tablet TAKE 1 TABLET (325 MG TOTAL) BY MOUTH EVERY MORNING NEEDED -- advised to stop daily iron in June 202310/24 completed Not Available Not Available Not Available lidocaine 5 % topical patch APPLY 1 PATCH BY TOPICAL ROUTE ONCE DAILY (MAY WEAR UP TO 12HOURS. ) 09/09 completed Not Available Not Available Not Available candesart an 16 mg tablet Take 1 tablet(s ) by mouth daily 11/15 completed stop Losartan ;RxNorm: 683693;A jorge aw Substitu tion: True Not Available Not Available Not Available betametha sone dipropion ate 0.05 % topical cream APPLY TO AFFECTED AREA TOPICALL Y TWICE A DAY NEEDED active Not Available Not Available No t Available omeprazol e 20 mg capsule,d elayed release Take 1 capsule every day by oral route. 09/18 completed Not Available Not Available Not Available furosemid e 20 mg tablet Take 1 tablet every day by oral route as needed. 01/11 completed Not Available Not Available Not Available ibuprofen 600 mg tablet TAKE 1 TABLET EVERY 6 HOURS BY ORAL ROUTE NEEDED FOR 5 DAYS, FOR BACK PAIN. 08/29 completed Not Available Not Available Not Available levofloxa monet 500 mg tablet Take 1 tablet(s ) by mouth daily for 7 days 02/13 completed Not Available Not Available Not Available methylpre dnisolone 4 mg tablets in a dose pack TAKE 6 TABLETS ON DAY 1 DIRECTED ON PACKAGE AND DECREASE BY 1 TAB EACH DAY FOR A TOTAL OF 6 DAYS 12/27 completed Not Available Not Available Not Available albuterol sulfate HFA 90 mcg/actua tion aerosol inhaler INHALE 2 PUFFS BY MOUTH 4 TIMES A DAY NEEDED 07/12 completed Not Available Not Available Not Available Vitamin D2 1,250 mcg (50,000 unit) capsule 1 capsule weekly for 8 weeks 02/12 completed Allow Substitu tion: True Not Available Not Available Not Available ketorolac 60 mg/2 mL intramusc ular solution Inject 2 mL by intramus cular route. 08/29 completed given by Melinda michele Not Available Not Available Not Available losartan 100 mg tablet TAKE 1 TABLET BY MOUTH EVERY DAY active Not Available Not Available No t Available fluticaso ne propionat e 50 mcg/actua tion nasal spray,jm pension SPRAY 2 SPRAYS INTO EACH NOSTRIL EVERY DAY 2019 active Not Available Not Available Not Avai lable naproxen 500 mg tablet TAKE 1 TABLET BY MOUTH EVERY 12 HOURS NEEDED 09/02 completed Not Available Not Available Not Available diazepam 5 mg tablet TAKE 1/2 TABLET BY MOUTH EVERY 8 HOURS NEEDED 05/08 completed Not Available Not Available Not Available oxycodone 5 mg tablet TAKE 1 TABLET (5 MG TOTAL) BY MOUTH EVERY 4 (FOUR) HOURS NEEDED FOR PAIN 12/05 completed Not Available Not Available Not Available valsartan 160 mg tablet Take 1 tablet(s ) by mouth daily 04/13 completed RxNorm: 575793;A llow Substitu tion: True Not Available Not Available Not Available Benicar 40 mg tablet Take 1 tablet(s ) by mouth daily 05/08 completed Not Available Not Available Not Available cyclobenz aprine 5 mg tablet TAKE 1 TABLET BY MOUTH EVERY DAY AT BEDTIME FOR 30 DAYS active Not Available Not Available No t Available rosuvasta tin 20 mg tablet TAKE 1 TABLET BY MOUTH EVERY DAY active Not Available Not Available No t Available Klor-Con M20 mEq tablet,ex tended release TAKE 1 TABLET (20 MEQ TOTAL) BY MOUTH DAILY WHEN TAKING FUROSEMI DE 01/11 completed Not Available Not Available Not Available Vitamin D3 50 mcg (2,000 unit) tablet Take 1 tablet every day by oral route. 2019 active Not Available Not Available Not Avai lable Tribenzor 40 mg-5 mg-12.5 mg tablet Take 1 tablet(s ) by mouth daily 06/11 completed RxNorm: [id number]; Allow Substitu tion: True Not Available Not Available Not Available TRUEplus Lancets 28 gauge 08/29 completed Not Available Not Available Not Available Farxiga 5 mg tablet TAKE 1 TABLET BY MOUTH EVERY DAY IN THE MORNING active Not Available Not Available No t Available clonidine HCl 1 tablet daily, addition al if needed 12/05 completed Not Available Not Available Not Available True Metrix Glucose Test Strip USE TO TEST BLOOD SUGAR ONCE A DAY 08/29 completed Not Available Not Available Not Available True Metrix Air Glucose Meter kit 08/29 completed Not Available Not Available Not Available Shingrix (PF) 50 mcg/0.5 mL intramusc ular suspensio n, kit 07/22 completed Not Available Not Available Not Available Ozempic 0.25 mg or 0.5 mg (2 mg/1.5 mL) subcutane ous pen injector INJECT 0.25 MG INTO SKIN ONCE WEEKLY 07/20 completed Not Available Not Available Not Available baclofen 5 mg tablet Take 1 tablet twice a day by oral route as needed for 14 days, for LOWER BACK PAIN. 09/02 completed Not Available Not Available Not Available Mounjaro 5 mg/0.5 mL subcutane ous pen injector INJECT 5MG SUBCUTAN EOUSLY EVERY WEEK FOR 28 DAYS (E11.37X 9) 2024 active Not Available Not Available Not Avai lable Mounjaro 2.5 mg/0.5 mL subcutane ous pen injector INJECT TWO AND A HALF (2 & 1/2) MG SUBCUTAN EOUSLY WEEKLY FOR 28 DAYS 02/12 completed Not Available Not Available Not Available Vitals Date Recorded Systolic And Diastolic Provider Name and Address Organization Details Last Updated DateTime 07/16/2024 136/83 mm[Hg] Christine Santoro MD Attn: [address] [place], [address], [place] [facility] 07/16/2024 13:32:56 Date Recorded Body height Body mass index (BMI) Body weight Oxygen saturation Oxygen saturation in Arterial blood by Pulse oximetry Heart rate Body temperature Systolic And Diastolic Provider Name and Address Organization Details Last Updated DateTime 154.94 cm 40.2 kg/m2 76033.1 7 g 99 % 99 % 68 /min 97.8 [degF] 143/85 mm[Hg] Gillian Hol[place] [facility] 13:16:09 Date Recorded Body height Body mass index (BMI) Body weight Oxygen saturation Oxygen saturation in Arterial blood by Pulse oximetry Heart rate Body temperature Systolic And Diastolic Provider Name and Address Organization Details Last Updated DateTime 5 154.94 cm 40.7 kg/m2 52829.7 6 g 99 % 99 % 62 /min 97.9 [degF] 143/85 mm[Hg] Evelyn Carpenter MA [facility] 5 11:23:44 Date Recorded Body height Body mass index (BMI) Body weight Oxygen saturation Oxygen saturation in Arterial blood by Pulse oximetry Heart rate Systolic And Diastolic Provider Name and Address Organization Details Last Updated DateTime 4 154.94 cm 38.6 kg/m2 22331.2 8 g 98 % 98 % 68 /min 129/85 mm[Hg] Brenda Talley MA [facility] 4 16:29:34 Date Recorded Body height Body mass index (BMI) Body weight Oxygen saturation Oxygen saturation in Arterial blood by Pulse oximetry Heart rate Body temperature Systolic And Diastolic Provider Name and Address Organization Details Last Updated DateTime 5 154.94 cm 39.3 kg/m2 73574.2 1 g 95 % 95 % 67 /min 98 [degF] 134/84 mm[Hg] Evelyn Carpenter MA [facility] 5 11:01:33 Date Recorded Body height Body mass index (BMI) Body weight Body temperature Oxygen saturation Oxygen saturation in Arterial blood by Pulse oximetry Heart rate Systolic And Diastolic Provider Name and Address Organization Details Last Updated DateTime 4 154.94 cm 41.8 kg/m2 688167. 91 g 97.5 [degF] 97 % 97 % 62 /min 130/83 mm[Hg] Poli Rick MA [facility] 4 11:54:52 Social History Question Answer Notes LastModified by Organizat ion Details LastModified Time Tobacco Smoking Status Never Smoker Perla Lakisha wilson [facility] 09/18/2017 16:08:19 Are You Blind Or Do You Have Difficulty Seeing? No Information n ot available 10/28/2020 What Is Your Level Of Caffeine Consumption? Moderate Information not available 10/28/2020 In The 14 Days Before Symptom Onset, Have You Had Close Contact With A Laboratory-confirm ed COVID-19 While That Case Was Ill? No Information n ot available 10/28/2020 In The 14 Days Before Symptom Onset, Have You Had Close Contact With A Person Who Is Under Investigation For COVID-19 While That Person Was Ill? No Information not available 10/28/2020 Have You Been To An Area Known To Be High Risk For COVID-19? No Information not available 10/28/2020 Are You Deaf Or Do You Have Serious Difficulty Hearing? No Information not available 10/28/2020 What Type Of Diet Are You Following? REGULAR Information n ot available 10/28/2020 What Was The Date Of Your Most Recent Tobacco Screening? 09/02/2024 Information not available 09/02/2024 What Is Your Relationship Status? Information not available 12/05/2021 Do You Use Your Seat Belt Or Car Seat Routinely? Yes Information not available 10/28/2020 Do You Have Smoke And Carbon Monoxide Detectors In Your Home? Yes Information not available 10/28/2020 Are You Passively Exposed To Smoke? No Information no t available 10/28/2020 Has Tobacco Cessation Counseling Been Provided? No Information not available 07/13/2023 Sex: Female Functional Status Question Answer Note LastModified by Organizat ion Details LastModified Time Do you use any illicit or recreational drugs? No Information not available 07/13/2023 Do you or have you ever used any other forms of tobacco or nicotine? No Information not available 07/13/2023 What is your level of alcohol consumption? None Information not available 10/28/2020 Are you currently employed? No Information not available 10/28/2020 Are you able to care for yourself? Yes Information n ot available 10/28/2020 What is your exercise level? Occasional Information not available 10/28/2020 Mental Status Question Answer Note LastModified by Organization D etails LastModified Time Do you feel stressed (tense, restless, nervous, or anxious, or unable to sleep at night)? [id number] Information not available 10/28/2020 Family History Relationship Description Onset Age of this Age Resolved Age Notes LastModified by Organization Details LastModified Time Brother Diabetes mellitus hreedma Not available 2015 15:07:31 Brother Hypertensive disorder hreedma Not available 2015 15:07:45 Brother Hypercholest erolemia hreedma Not available 2015 15:07:59 Sister Diabetes mellitus hreedma Not available 2015 15:07:31 Sister Hypertensive disorder hreedma Not available 2015 15:07:45 Sister Hypercholest erolemia hreedma Not available 2015 15:07:59 Mother Hypertensive disorder hreedma Not available 2015 15:07:45 Mother Hypercholest erolemia hreedma Not available 2015 15:07:59 Medical History Condition Response Acid Reflux (GERD) Y High Blood Pressure Y High Cholesterol Y Gynecological History Statement/Question Response Menses Monthly N Obstetrics History GPAL:G 0 P 0 0 0 0 Immunizations Vaccine Type Date Status Note Provider Silverio e and Address Organization Details Recorded Time zoster recombinant 9 completed Christine Santoro MD Attn: [address] [place], [place], [address] [place] [address], [place] [facility] 03/16/2023 07:57:08 zoster recombinant 0 completed Christine Santoro MD Attn: [address] [place], [address] [place] [address], [place] [facility] 03/16/2023 07:57:08 COVID-19, mRNA, LNP-S, PF, 100 mcg/0.5mL dose or 50 mcg/0.25mL dose 1 completed Christine Santoro MD Attn: [address] [place], [address] [place] [address] [place] [facility] 01/15/2024 12:23:24 COVID-19, mRNA, LNP-S, PF, 100 mcg/0.5mL dose or 50 mcg/0.25mL dose 1 completed Christine Santoro MD Attn: Accounting,[address] [facility], [place], [place], [address] [place] [address], [place] [facility] 01/15/2024 12:23:24 Influenza, adjuvanted, quadrivalent, PF 0 completed Christine Santoro MD Attn: Accounting,[address] [facility], [place], [place], [address] [place] [address], [place] [facility] 07/13/2023 14:58:21 Influenza, adjuvanted, quadrivalent, PF 1 completed Christine Santoro MD Attn: Accounting,[address] [facility], [place], [place], [address] [place] [address], [place] [facility] 07/13/2023 14:58:21 pneumococcal polysaccharide PPV23 8 completed Christine Santoro MD Attn: Accounting,[address] [facility], [place], [place], [address] [place] [address], [place] [facility] 01/15/2024 12:23:24 zoster live 5 completed Christine Santoro MD Attn: Accounting,[address] [facility], [place], [address] [place] [address], [place] [facility] 01/15/2024 12:23:24 Influenza, high-dose, trivalent, PF 8 completed Christine Santoro MD Attn: Accounting,[address] [facility], [place], [address] [place] [address], [place] [facility] 01/15/2024 12:23:24 Influenza, split virus, quadrivalent, preservative 0 completed Christine Santoro MD Attn: Accounting,[address] [facility], [place], [address] [place] [address], [place] [facility] 03/16/2023 07:57:08 Influenza, split virus, quadrivalent, preservative 9 completed Christine Santoro MD Attn: Accounting,[address] [facility], [place], [address] [place] [address], [place] [facility] 01/15/2024 12:23:24 Influenza, split virus, quadrivalent, preservative 1 completed Christine Santoro MD Attn: Accounting,[address] [facility], [place], [address] [place] [address], [place] [facility] 03/16/2023 07:57:08 Influenza, adjuvanted, quadrivalent, PF 0 completed Christine Santoro MD Attn: Accounting,[address] [facility], [place], [address] [place] [address], [place] [facility] 03/16/2023 07:57:08 pneumococcal polysaccharide PPV23 8 completed Christine Santoro MD Attn: Accounting,[address] [facility], [place], [address] [place] [address], [place] [facility] 03/16/2023 07:57:08 influenza, unspecified formulation 6 completed Christine Santoro MD Attn: Accounting,[address] [facility], [place], [address] [place] [address], [place] [facility] 03/16/2023 07:57:08 influenza, unspecified formulation 6 completed Christine Santoro MD Attn: Accounting,[address] [facility], [place], [address] [place] [address], [place] [facility] 03/16/2023 07:57:08 influenza, unspecified formulation 6 completed Christine Santoro MD Attn: Accounting,[address] [facility], [place], [address] [place] [address], [place] [facility] 03/16/2023 07:57:08 Influenza, high-dose, trivalent, PF 8 completed Christine Santoro MD Attn: Accounting,[address] [facility], [place], [address] [place] [address], [place] [facility] 03/16/2023 07:57:08 COVID-19, mRNA, LNP-S, PF, 100 mcg/0.5mL dose or 50 mcg/0.25mL dose 1 completed Christine Santoro MD Attn: [address] [place], [address] [place] [address], [place] [facility] 01/15/2024 12:23:24 Pneumococcal conjugate PCV 13 7 completed Not Available [facility] 04/12/2019 02:40:51 Influenza, split virus, quadrivalent, preservative 2 completed TH[place]ESE [place] [facility] 12/27/2021 16:51:21 Td (adult), 2 Lf tetanus toxoid, preservative free, adsorbed 6 completed Christine Santoro MD Attn: [address] [place], [address], [place] [facility] 01/15/2024 12:23:24 TST-PPD intradermal 6 completed Christine Santoro MD Attn: [address] [place], [address], [place] [facility] 03/16/2023 07:57:08 Pneumococcal conjugate PCV20, polysaccharide ISM016 conjugate, adjuvant, PF 3 completed [place] [facility] 01/11/2023 13:46:22 Influenza, high-dose, quadrivalent, PF 3 completed [place] [facility] 01/11/2023 13:47:03 Influenza, high-dose, trivalent, PF 4 completed [place] [facility] 01/15/2024 12:51:53 Past Encounters Encounter ID Performer Location Encounter Start Date Encounter Closed Date Diagnosis/Indication Diagnosis SNOMED-CT Code Diagnosis ICD10 Code Diagnosis Note [id number] Christine Santoro MD [facility] [address] [place] [address] 02/14/2016 14:11:17 02/16/2016 14:24:01 Imaging result abnormal 203823625 R91.8 Pancytopenia 874786640 D 61.818 Gastritis 6902548 K29.70 [id number] Christine Santoro MD [facility] [address] [place] [address] 05/08/2016 11:50:56 05/09/2016 10:51:13 Pneumococcal pneumonia 570129536 J13 Review of the CT scan and the need to recheck in 6 months with a copy of the CT report given to patient Essential hypertension 84303457 I10 restart amlodipine daily-- check BP at home and call if elevation does not improve Solitary n odule of lung 202247203 R91.1 Gastroesop hageal reflux disease without esophagitis 603099333 K21.9 Thrombocyt openic disorder 167077888 D69.6 [id number] Christine Santoro MD [facility] [address] [place] [address] 11/06/2016 12:17:24 11/06/2016 17:18:30 Thrombocytopenic disorder 152057762 D69.6 will follow up on this Essential hypertension 42782542 I10 no med change Pneumococc al pneumonia 235848042 J13 Review of the [address] scan and the need to recheck in 12-18 months with a copy of the las 3 CT report given to patient Unintentio nal weight gain 0493758125 51415 R63.5 discussed exercise-- diet change and behavioral change. To see Daniaolvin Kaur monthly to promote weight management Administra tion of pneumococcal vaccine 24216359 Z23 will need Pneu 23 in one year Pure hypercholesterolemia 232671046 E78.00 [id number] Christine Santoro MD [facility] [address] [place] [address] 12/13/2016 10:00:50 12/13/2016 15:18:49 Type 2 diabetes mellitus without complication 374201905 E11.9 Discussed with patient the pathophysi ology of type II diabetes and insulin resistance . Discussed the potential complicati ons and vascular compromise of uncontroll ed blood sugars, such as stroke, CAD, retinopath y and kidney disease. We reviewed current HgA1C and goal of <7 A1C. Lipid goals discussed. Importance of UTD immunizati ons, yearly eye exams, and foot checks. We discussed in great length carb counting, label reading and her daily carbohydra te goals of <250gm per day. Choosing healthy carbs like fruits, veggies, whole grains, and lean proteins. Avoiding any sugar in beverages, and how exercise is important in maintainin g healthy blood sugars and a healthier weight. She will f/u in 6 months as scheduled and she would like to come in fasting for labs at that visit. Spent 20 minutes 100% counseling [id number] Christine Santoro MD [facility] [address] [place] [address] 05/07/2017 11:46:33 05/07/2017 17:59:02 Type 2 diabetes mellitus 21272266 E11.37X1 weight loss encouraged and will reassess need for med change pending outcome of the labs Essential hypertension 05205225 I10 no med change Choking attacks 39054473 6 R09.89 Cough 28258653 R05 Thrombocyt openic disorder 556384059 D69.6 will follow up on this Solitary n odule of lung 524477153 R91.1 [id number] Christine Santoro MD [facility] [address] [place] [address] 09/18/2017 16:06:05 09/19/2017 08:57:56 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 Persistent cough 7636426 02 R05 Pre-surger y evaluation 635661473 Z01.818 clearance will be pending the test results Platelet c ount below reference range 528185950 R79.89 Vitamin D deficiency 347 65678 E55.9 Type 2 octavio betes mellitus 67115768 E11.37X1 weight loss encouraged and will reassess need for med change pending outcome of the labs [id number] Christine Santoro MD [facility] [address] [place] [address] 09/24/2017 11:32:21 09/25/2017 09:11:40 Anemia 100596114 D64.9 [id number] Christine Santoro MD [facility] [address] [place] [address] 11/05/2017 11:15:19 11/06/2017 09:30:07 Essential hypertension 52152794 I10 no med change Cardiomegaly 0934727 I51 .7 had stress ECHO last eb- - will recheck BNP and results of CT to Dr. Baumann Wheezing symptom 5297687 08 R06.2 exam today is OK-- weight loss is stressed Type 2 octavio betes mellitus 69779700 E11.37X1 weight loss encouraged and will reassess need for med change pending outcome of the labs-- last Hgb A1 C was 7.0 in August Low back pain 823648066 M54.5 the weight is a big culprit in the pain-- declines some PT at this time and will take ES Tylenol as needed for this pain [id number] Christine Santoro MD [facility] [address] [place] [address] 02/11/2018 11:55:03 02/12/2018 09:35:57 Essential hypertension 92054198 I10 no med change-- labs were reviewed from September-- cont the GREAT weight loss-- no dose change and low salt diet. 7 fruits and vegetables per day-- try to eat no sugar added to anything. Real food Thumb join t painful on movement 058947057 M79.642 I will add the meloxicam for use as needed for the pain of the thumb and the ear-- likely related to neck OA Otalgia of right ear 439 4022404 293796 H92.01 likely related to neck Osteoarthr itis Mixed hyperlipidemia 267 632750 E78.2 no change and recheck labs in September Long-term drug therapy 817102015 Z79.899 Administra tion of viral vaccine 96057215 Z23 Type 2 octavio betes mellitus 51312338 E11.37X1 weight loss encouraged and will reassess need for med change pending outcome of the labs-- last Hgb A1 C was 7.0 in August-- you will need to see the EYE doctor this year [id number] Christine Santoro MD [facility] [address] [facility] [address] [place] [address] 03/01/2018 09:30:30 03/04/2018 08:57:58 Mixed hyperlipidemia 198033496 E78.2 Diabetes mellitus 741564 09 E11.37X1 Long-term drug therapy 796175906 Z79.870 [id number] Christine Santoro MD [facility] [address] [place] [address] 09/09/2018 15:33:02 09/09/2018 17:24:00 Type 2 diabetes mellitus 04717100 E11.37X1 weight loss encouraged and will reassess need for med change pending outcome of the labs-- last Hgb A1 C was 7.0 in August-- you will need to see the EYE doctor this year Essential hypertension 30056999 I10 no med change-- labs were reviewed from September-- cont the GREAT weight loss-- no dose change and low salt diet. 7 fruits and vegetables per day-- try to eat no sugar added to anything. Real food Mixed hyperlipidemia 267 158129 E78.2 Wheezing 98490932 R06.2 Menopause present 647772 006 N95.1 Administra tion of viral vaccine 05641547 Z23 Menopausal and postmenopausal disorders 606206511 N95.9 [id number] Christine Santoro MD [facility] [address] [facility] [address] [facility] [place] [address] 01/06/2019 12:10:22 01/06/2019 15:03:48 Essential hypertension 39940915 I10 -- cont the GREAT weight loss-- no dose change and low salt diet. 7 fruits and vegetables per day-- try to eat no sugar added to anything. Real food Type 2 octavio betes mellitus 06858964 E11.37X1 weight loss encouraged and will reassess need for med change pending outcome of the labs-- last Hgb A1 C was at goal with Dr Paredes in Nov 2018-- you are up to date with EYE doctor this year Dependent edema 35705853 4 R60.0 routine refill Acid reflux 234223910 K2 1.9 routine refill Eczema 78163590 L30.9 routine refill Pain in le ft lower limb 047471149 M79.605 Administra tion of influenza vaccine 47076809 Z23 [id number] Christine Santoro MD [facility] [address] [facility] [place] [address] 07/23/2019 11:30:14 07/23/2019 15:14:33 Wheezing 76502761 R06.2 Sinusitis 26454729 J32.9 Influenza- like symptoms 262845896 R68.89 given chills, body aches, and that fact she has been out to stores, we will test. If neg and she is not feeling better by the time she gets testing back and it is neg, we will consider ABT. in the meantime she needs to remain self isolated. [id number] Christine Santoro MD [facility] [address] [place] [address] 10/02/2019 11:52:48 10/02/2019 13:42:48 Persistent cough 933421407 R05 I will treat with a ZPAK and I would like to get a CT chest since complaint lasting 2+ months Atypical chest pain 1025 85225 R07.89 you will get a chest CT and the EKG for evaluation of this complaint- - I am pleased that the pain seems better at this time Pure hypercholesterolemia 465612178 E78.00 fast for blood work tomorrow Type 2 octavio betes mellitus 39536066 E11.37X1 will check diabetes control with the Hgb A1C Vitamin D deficiency 347 09993 E55.9 recheck lab tomorrow Long-term drug therapy 893205909 Z79.899 will check liver, kidney , glucose and blood counts [id number] Christine Santoro MD [facility] [address] [place] [address] 10/23/2019 15:21:32 10/24/2019 09:18:16 Neuropathy 701478219 G62.9 Sleep with body pillow to left, try to sleep on the right side.Susan nue ibuprofen and lidocaine gel.Will consider medication s after XR resultspos sibly due to impingemen t centrally in lumbar sline/ spinal stenosis-- or peripheral ly at the hip or knee-- will try to avoid compressio n on peripheral nerves [id number] Christine Santoro MD [facility] [address] [place] [address] 11/26/2019 14:37:02 11/26/2019 16:50:00 Lumbar spondylolisthesis [id number] 51000 M43.16 Back pain is improved.P atient desires brace that will provide lumbar support. Advised patient to look on Internet for a lumbar support. Discussed sizing. Call clinic if having trouble obtaining a brace. Continue taking ibuprofen for pain as needed.Yary watt will call clinic if worsening again-- otherwise follow up in 6 months Transient cerebral ischemia 351142210 G45.9 suspect TIA given history of recent ED visit (not yet received note from [facility]). If symptoms worsen, call 911 and go to hospital.D iscussed obtaining brain MRI to evaluate [id number] Christine Santoro MD [facility] [address] [facility] [address] [place] [address] 01/30/2020 10:38:05 02/02/2020 10:16:54 Chronic vertigo 9123835385 9105 R42 Transient cerebral ischemia 691560937 G45.9 suspect TIA -- given persistent symptoms-- may ahve been a small stroke?Dis cussed obtaining brain MRI to evaluate Claustrophobia 03752594 F40.284 [id number] Christine Santoro MD [facility] [address] [facility] [address] [facility] [place] [place] [address] 05/27/2020 08:57:23 05/31/2020 14:50:46 Type 2 diabetes mellitus 55816026 E11.37X1 will check diabetes control with the Hgb A1C-- level is due now--order sent Essential hypertension 47002366 I10 bp is OK Wheezing 69581173 R06.2 Situationa l panic attack 145388472 F41.0 consider curbside and we discussed and we discussed timing visit to the store to avoid crowds.. Also vaccshelbytio digna for [employer] encouraged Screening for malignant neoplasm of colon 687990567 Z12.11 rescreen-- last done 2017-- agrees to have sent via [employer] if covered [id number] Christine Santoro MD [facility] [address] [place] [address] 10/28/2020 14:12:06 10/29/2020 09:04:12 Adhesive capsulitis of right shoulder 0182660280 82507 M75.01 will check shoulder xray and refer to Dr poe-- pt agrees Type 2 octavio betes mellitus 13257207 E11.37X1 lipids to be done at earliest convenien e Thrombocyt openic disorder 797664579 D69.6 will follow up on this since low platelets in past [id number] Christine Santoro MD [facility] [address] [place] [address] 12/16/2020 16:40:55 12/17/2020 11:56:00 Dysuria 09686739 R30.9 [id number] Christine Santoro MD [facility] [address] [place] [address] 05/30/2021 14:34:51 05/30/2021 17:32:09 Pure hypercholesterolemia 775564147 E78.00 blood work in Nov for cholestero l was great and will be needed in Nov again Type 2 octavio betes mellitus 52892153 E11.37X1 check Hgb A1C today-- non fasting and will need preop testing for upcoming hysterecto my-- I will review other labs then Essential hypertension 24534403 I10 bp is OK-- was high at GYNs office but fine taken today-- checked both right and left arms and OK Bloating symptom 4258795 00 R14.0 trial for bloating and will call if not effective for your bloating complaintt ry to double your water intake Body mass index 30+ - obesity 759892191 Z68.43 offered and declined a visit to nutritioni st or claim processing specialist -- eating more fiber but increasing the amount of water daily [id number] Christine Santoro MD [facility] [address] [facility] [address] [facility] [place] [address] 12/05/2021 12:31:36 12/05/2021 23:06:47 Acute right otitis media 226461074 H66.91 treat with antibiotic and steroid ( does not have DM)call if not better with completion Positional vertigo 35356 4002 H81.11 OK to cont meclizine as needed and call if not able to manage symptoms [id number] Christine Santoro MD [facility] [address] [facility] [address] [facility] [place] [address] 12/27/2021 14:12:05 12/28/2021 09:46:32 Type 2 diabetes mellitus 80041356 E11.37X1 Advised the pt eat less processed foods and to do 30 mins of exercise 5x week Administra tion of influenza vaccine 72190913 Z23 Long-term drug therapy 638832120 Z79.899 Essential hypertension 07238761 I10 Bp is stable Otalgia of right ear 259 9252669 H92.01 Pt has completed amoxicilli n and medrol dose pack. [id number] Christine Santoro MD [facility] [address] [place] [address] 01/06/2022 10:52:35 01/06/2022 14:01:11 Blood in urine 64694973 R31.9 [id number] Christine Santoro MD [place] [address] [place] [address] 01/19/2022 10:22:51 01/19/2022 18:21:55 Type 2 diabetes mellitus 41976806 E11.37X1 Advised the pt eat less processed foods and to do 30 mins of exercise 5x week Essential hypertension 72090195 I10 Bp is stable [id number] Christine Santoro MD [place] [address] [place] [address] 05/08/2022 12:15:51 05/08/2022 17:20:50 Type 2 diabetes mellitus 27397184 E11.37X1 Advised the pt eat less processed foods and to do 30 mins of exercise 5x weekwill start OZEMPIC as discussed and the med addition should help with weight losseffect s/ side effects adn contraindi cations reviewed with patient Lipoma of skin 883116974 D17.30 will refer to gen surgery to consider excision-- the pain may not be from the lipoma but given to location of pain at the site of lipoma-- I think that removal is reasonable Body mass index 30+ - obesity 495645791 Z68.43 I advised to hold off on NUTRISYSTE M since she is starting OZEMPIC [id number] Christine Santoro MD [facility] [address] [place] [address] 07/20/2022 11:18:29 07/21/2022 10:00:55 Vitamin D deficiency 47646522 E55.9 last check was OK in 2019 Type 2 octavio betes mellitus 03901249 E11.37X1 Advised the pt eat less processed foods and to do 30 mins of exercise 5x weekwill start MOUNJARO now-- the OZEMPIC co pay is $100-- as discussed and the med addition should help with weight losseffect s/ side effects and contraindi cations reviewed with patient Essential hypertension 24345835 I10 Bp is stable- no med change Pure hypercholesterolemia 077514681 E78.00 blood work in December for cholestmayi l was great and will be needed in December again Eczema 11143804 L30.9 routine refill-- reports effective use in the past Paresthesia 04008751 R20 .2 she will cont taking the potassium for now-- no evaluation with NCV at this time-- but if this complaint worsens -- will pursue [id number] Christine Santoro MD [facility] [address] [facility] [address] [place] [address] 01/11/2023 11:48:55 01/11/2023 15:43:45 Type 2 diabetes mellitus 59987545 E11.37X1 Advised the pt eat less processed foods and to do 30 mins of exercise 5x week effects/ side effects and contraindi cations reviewed with patientshe reports she is OK with refills Essential hypertension 02864823 I10 Bp is stable- we will stop IDNAPAMIDE and POTASSIUM since BP levels re very good today Administra tion of pneumococcal vaccine 70316337 Z23 will need Pneu 20 in this year Administra tion of influenza vaccine 16217299 Z23 Immunization advised 310 097768 Z71.9 new covid shot is available and advised -- wait 2 weeks or more to get this shot Epigastric discomfort 11 5459042 R10.13 comes and goes-- patient will call if this pain occurs with any consistenc y [id number] Christine Santoro MD [facility] [address] [place] [address] 07/13/2023 14:20:22 07/13/2023 16:47:03 Type 2 diabetes mellitus 11262565 E11.37X1 pt reports she is eating less processed foods and she is exercising nowNo side effects and contraindi cations reviewed with patient related to Bubba e reports she is OK with refills Essential hypertension 61597288 I10 Bp is stable-- remains good off of INDAPAMIDE History of iron deficiency 041603508 Z86.39 will check iron to see if supplement of iron can be stopped Long-term drug therapy 242881593 Z79.899 will check liver and kidney functions and electrolyt es-- she is NON FASTING at this time Menopause present 056132 006 N95.1 due for DEXA- order submitted and she will set up testing at her earliest convenien e [id number] Christine Santoro MD [facility] [address] [facility] [address] [place] [address] 08/30/2023 16:17:27 08/31/2023 10:04:31 Left side sciatica 4375744914 98323 M54.32 No bending or lifting, heat to relax muscles, ice for pain relief, call if no better for f/u. Will give MR and tramadol for symptomati c relief given debilitati ng ADLs currently. If any increase in symptoms like leg weakness, bowel or bladder dysfunctio n, worsening pain, please call. Will try to get in home PT since patient is home bound due to pain at this time. Do not taking IBU. Do not take medication s that are not prescribed to you.1. Modify your activity for 3-6 weeks. 2. Avoid heavy lifting 3. Use positions that promote comfort 4. Gradually resume activities as tolerated, which include gradually increasing low-stress aerobic exercise. 5. Ice for 20-30 minutes several times a day for the first 48 hours after pain started. 6. Apply heat for 20-30 minutes several times a day 48 hours after the pain started. 7. Healing can take up to 6 weeks 8. Strengthen ing exercises once back pain is gone. Obesity 339851233 E66.9 [id number] Christine Santoro MD [facility] [address] [place] [address] 01/15/2024 11:12:55 01/15/2024 15:18:23 Type 2 diabetes mellitus 17528225 E11.37X1 pt reports she is eating less processed foods and she is exercising nowI advised to increase the dose of MOUNJARO -- taking extra shot today and 2 next week of the 2.5 mg strength-- then getting new dose to thereafter take 5 mg weeklyNo side effects and contraindi cations reviewed with patient related to MOUNJARO Adult heal th examination 590802027 Z00.00 Health Risk Assessment collected and reviewedno n smokeradva nce directives arranged-- has a trust in placefall prevention strategies in place-- son visited and left this Am-- safety discussedn o dementiahe althy eating / lifestyle discussed Administra tion of influenza vaccine 02764027 Z23 advised and given flu shot today Screening for osteoporosis 316560365 Z13.820 she is planning to be tested for bone density at [facility] but their machine was not working she is waiting to hear from them to reschedule Long-term drug therapy 551352702 Z79.899 will check liver and kidney functions and electrolyt es in June-- non fasting today [id number] Christine Santoro MD [facility] [address] [place] [address] 07/16/2024 12:06:13 07/17/2024 10:51:37 Type 2 diabetes mellitus 26507262 E11.37X1 pt reports she is eating less processed foods and she is exercising nowI advised to not change the dose of MOUNJARO -- taking extra shot today and 2 next week of the 2.5 mg strength-- then getting new dose to thereafter take 5 mg weeklyNo side effects and contraindi cations reviewed with patient related to MOUNJARO Screening for malignant neoplasm of colon 608694289 Z12.11 she would like upper and lower endoscopy- -- agrees to see GI-- has had H Pylori? in the past and would like this checked Essential hypertension 27820303 I10 Bp is a bit high today but she reports it remains good off of INDAPAMIDE and she continues to check BP at home ( a little elevated today due to prolonged wait) Sebaceous cyst of skin 808657590 L72.3 forehead with small sebaceous cyst-- asymptomat ic Ganglion cyst 160452694 M67.40 asymptomat ic-- will monitor and if it becomes symptomati c Acquired thrombocytopenia 18509891 D69.6 will follow up on this since low platelets in past Body mass index 40+ - severely obese 316035828 E66.01 Z68.41 I advised to continue OZEMPIC and farxiga-- A1C and weight improving [id number] Christine Santoro MD [facility] [address] [facility] [place] [address] 08/01/2024 11:01:33 08/04/2024 10:37:28 Neck pain 33270640 M54.2 she has care instructio nina from urgent care-- advised to cont home stretching -- I added a muscle relaxer at bedtime ( no driving within 8 hours of taking this medication )-- OK to cont NAPROXEN for pain when not driving [id number] Christine Santoro MD [facility] [address] [place] [address] 09/02/2024 10:49:52 09/03/2024 09:59:39 Neck pain 56877060 M54.2 she has care instructio nina from urgent care-- advised to cont home stretching -- I added a muscle relaxer at bedtime ( no driving within 8 hours of taking this medication )-- OK to cont NAPROXEN for pain when not driving Health Concerns Section Related Observation LastModified by Organization Detai ls LastModified Time None Recorded Concern Status LastModified by Organization Details LastModified Time None Recorded Advance Directives Directive N: she has a will just not a living will Payers Insurance Date Sequence Insurance Name Policy Number Policy Flynn Covered Member ID Flynn Member ID Guarantor Name 02/22/2023 2 [employer] (MEDICARE SUPPLEMENT) Presicella A Wittenberg [id number] Presicella A Wittenberg 02/22/2023 1 [employer] (MEDICARE SUPPLEMENT) PLAN G Presicella A Wittenberg [id number] Presicella A Wittenberg 02/22/2023 2 [employer] (MEDICARE SUPPLEMENT) PLAN G Presicella A Wittenberg [id number] Presicella A Wittenberg 11/05/2020 2 UNSPECIFIED REMIT PAYOR Presicella A Wittenberg 02/22/2023 1 [place] Presicella A Wittenberg [id number] Presicella A Wittenberg 02/22/2023 [place] [facility] Presicella A Wittenberg [id number] Presicella A Wittenberg 02/22/2023 2 [employer] [facility] [employer] (MEDICARE SUPPLEMENT) PLAN G Presicella A Wittenberg [id number] Presicella A Wittenberg 03/12/2020 2 UNSPECIFIED REMIT PAYOR Presicella A Wittenberg 02/22/2023 1 [place] Presicella A Wittenberg [id number] D Presicella A Wittenberg 02/22/2023 2 [employer] [place] (MEDICARE SUPPLEMENT) PLAN F Julia Talley [id number] Julia Talley 02/22/2023 3 [place] [facility] - [facility] Julia Talley [id number] Julia Talley 07/13/2023 SLIDING FEE SCHEDULE - DISCOUNT Julia Talley 09/22/2022 1 *SELF PAY* Pr esicellstephen Talley 07/20/2022 1 *SELF PAY* Pr esicellstephen Talley 08/30/2024 1 [employer] (MEDICARE REPLACEMENT/ADVA NTAGE - PPO) Jluia Talley [id number] Julia Talley Notes Date Note Type Note Provider Name and Address Organization Details Recorded Time 08/30/2023 text/html Back PainReporte d bypatient.Location:cathie n radiating to the buttocks Quality:sharp Severity:worsening;cathie n level 10/10;interference with sleep Onset/Timinweeks ago Aggravating Factors:movement/posit ioning Associated Symptoms:weak limbs;numbness of the legs/feet;tinglingNote s:Pain is at a 5/10 today, but in the ER was 10/10. Tramadol and prednisone did help- this has run out. Tried 800mg ibu which did help symptoms. States she took some hydrocodone last night which helped her sleep. Has been bed bound for about 2 weeks due to pain. Has been using a walker to help with mobility/stability and at her normal she does not need a walking aid. No change in urinary symptoms. No loss of control of bowel or bladder movements. Still left sided lower back/gluteal region radiating down to left ankle. The leg can feel weak like its going to give out on her. Has been using heating pad which has helped some. Biofreeze as well which has helped. MILEY Adler Attn: Accounting,[address] [facility], [place], [address], [facility] 08/30/2023 17:10:14 01/15/2024 text/html MAW 2Reported bypatient.Diet and Nutrition:healthy diet Fracture Risk:no history of fractures; no sudden unexplained fractures Concentration and Memory:no decreased concentrating ability; no memory lapses or loss; does not forget words Speech/Motor difficulties:no speech difficulties; no difficulty expressing formulated concepts; no difficulty with fine manipulative tasks; no difficulty writing/copying; no slowed reaction time; does not knock things over when trying to pick them up Hearing:no loss of hearing Vision:no vision problems Activities of Daily Living:able to bathe with limited or no assistance; able to contol urination and bowels; able to dress with limited or no assistance; able to feed self with limited or no assistance; able to get out of chair or bed with limited or no assistance; able to groom with limited or no assistance; able to toilet with limited or no assistance Instrumental Activities of Daily Living:able to do house work with limited or no assistance; able to grocery shop with limited or no assistance; able to manage medications with limited or no assistance; able to manage money with limited or no assistance; able to prepare meals with limited or no assistance; able to use the phone with limited or no assistance Falls Risk Assessment:no frequent falls while walking; no fall in the past year; no fall since last visit; no dizziness/vertigo Home Safety:no unsafe chema hazzards; no unsafe stairs; working smoke/CO detectors; practicing 'safer sex'; no fire arms; has hand bars in the bathroom/shower; good lighting in the home pt agrees to have her annual flu shotpatient reports she is fasting for lab testingpatient declined a breast exam today-- recent MAMMOGRAM noted in chartpt has questions about a Kidney Test that she received in the mail from insurance Christine Santoro MD Attn: Accounting,[address] [place], [address], [facility] 01/15/2024 13:29:01 07/16/2024 text/html Diabetes F/URepo rted bypatient.Review finger sticks:every now and again Labs:last A1C result: 5.8 (as of 06/24/2024) Context:normal range of home blood sugars (in the low 100s); seeing eye doctor regularly; checking feet regularly; taking aspirin daily; not missing doses of medications; no side effects from medications Associated Symptoms:no weight gain; no weight loss; no dizziness; no sweats; no headaches; no confusion; no increased thirst; no increased appetite; no increased urination; no blurred vision; no numbness of feet; no calluses on feetNotes:no ill effects of MOUNJARO and tolerating FARXIGA for renal protection Christine Santoro MD Attn: Accounting,[address] [place], [address], [facility] 07/16/2024 14:29:46 08/01/2024 text/html ShoulderReported bypatient.Hand Dominance:right Location:right (shoulder and reports mynor pain radiates into rt side of neck -- and pulsation sensation and muscle spasms to the right side of neck-- she had pain move to the center anterior neck-- her daughter did all of the lifting but patient did not take her own pillow to [place]..) Quality:throbbing; sharp; superficial; deep; constant; worsening Severity:moderate; pain level 5/10 Duration:2 weeks (pt said that when she here at her last visit she forgot to say something about her rt shoulder which had an injection 11/2020 and no pain of neck with ROM neck) Timing:cannot identify Context:cannot identify Alleviating Factors:nothing helps Aggravating Factors:changing clothes Associated Symptoms:no weakness; no numbness; no tingling; no swelling; no redness; no warmth; no buckling; no grinding; no instability; no radiation down arm; no drainage; no fever; no chills; no weight loss; no change in bowel/bladder habits;catching/lockin g;popping/clicking Previous Surgery:none Prior Imaging:none Previous Injections:helped significantly Previous PT:helped significantly; she is doing home exercises from urgent care for her neck-- had PT for right shoulder 2020 and left knee 2024 -- no PT for neck done Work Related:no Working:no pt was in [place] last week when the muscle spasms started to get worse pt went [facility] urgent care in [place] pt has been doing neck exercise-- received NAPROXEN in urgent care -- no XRAYs were done-- she is here for follow up-- she was advised not to drive after NAPROXEN-- she did no take NAPROXEN today Christine Santoro MD Attn: Accounting,[address] [place], [address], [facility] 08/01/2024 11:53:45 09/02/2024 text/html Neck PainReporte d bypatient.Trauma:no Neurological Complaints:none Pain:aching;worse with movement(sometimes);ra diates to right shoulder Pain Duration:2 months; pain started in the last 2 weeks of June Treatment:PT/OT pt says her neck does hurt right now on the right sideshe is walking 0.2 miles/ 10 minutes -- 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, [place], [address], [facility] 09/02/2024 11:24:16 OBGyn Episode No OBEpisode recorded.
--- OUTSIDE RECORDS SUMMARY | 2024-10-13 08:46 | XMS_ITS | Clinical Summary ---
Author Organization [facility] Address [address] [place] [address] Care Team Providers Care Corner Cutter Name Role Phone Christine Denney MD Primary Care Provider [phone] Allergies Active Allergy Reactions Criticality Noted Date Comments Valsartan Dizziness Low 04/13/2016 Medications amlodipine 5 MG tablet 1 tablet (5 mg total). 08/14/19 17 Active carvedilol 25 MG tablet 1 tablet (25 mg total). 10/08/19 17 Active famotidine 20 MG tablet 1 tablet (20 mg total). 10/08/19 17 Active ferrous sulfate, 65 mg elemental, 325 (65 FE) MG tablet Take 1 tablet (325 mg total) by mouth 2 (two) times daily. 1 04/22/19 19 Active losartan 100 MG tablet 1 tablet (100 mg total). 08/17/19 17 Active meloxicam 7.5 MG tablet Take 1 tablet (7.5 mg total) by mouth daily as needed. 1 05/12/19 19 Active rosuvastatin 20 MG tablet 1 tablet (20 mg total). 10/08/19 17 Active ibuprofen 600 MG tablet Take 1 tablet (600 mg total) by mouth every 6 (six) hours as needed for Pain. 60 tablet 09/03/19 Active furosemide 20 MG tablet Take 1 tablet (20 mg total) by mouth as needed. Active albuterol sulfate HFA (VENTOLIN HFA) 108 (90 Base) MCG/ACT inhaler INHALE 1 TO 2 PUFFS BY MOUTH 4 TIMES DAILY NEEDED 01/05/20 Active ONETOUCH VERIO test strip USE 1 STRIP TO CHECK GLUCOSE TWICE DAILY 10/29/20 20 Active Lancets (ONETOUCH DELICA PLUS [id number]) [facility] USE 1 TO CHECK GLUCOSE TWICE DAILY 01/22/20 20 Active meclizine 25 MG tablet meclizine 25 mg tablet TAKE 1 TABLET BY MOUTH THREE TIMES A DAY NEEDED Active Cholecalciferol 50 MCG (2000 UT) Cap 2,000 Units daily. Active betamethasone dipropionate 0.05 % cream betamethasone dipropionate 0.05 % topical cream Active tirzepatide (MOUNJARO) 2.5 MG/0.5ML injection Inject 2.5 mg into the skin every 7 days. Active naproxen (NAPROSYN) 500 MG tablet Take 1 tablet (500 mg total) by mouth 2 (two) times daily with meals. 15 tablet 03/01/20 24 Active FARXIGA 5 MG Tab Take 1 tablet by mouth daily. Active cyclobenzaprine (FLEXERIL) 5 MG tablet Take 1 tablet (5 mg total) by mouth 3 (three) times daily as needed for Muscle Spasms. 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 Impingement syndrome of right shoulder Resolved Problems Problem Noted Date Diagnosed Date Resolved Date Screening for colon cancer 07/23/2024 0 07/28/2024 Screening for colon cancer 07/23/2024 0 08/11/2024 Screening for colon cancer 07/23/2024 0 08/18/2024 Encounters Date Type Department Care Team Description 08/13/2024 11:34 AM CDT Anesthesia Event [address] [address] Austin Lewis CRNA Siddiqui, Ata U., MD 08/13/2024 10:31 AM CDT - 08/13/2024 11:07 AM CDT Surgery [address] [address] Enrique Gonzales MD COLONOSCOPY NO BIOPSIES 08/13/2024 9:33 AM CDT - 08/13/2024 1:00 PM CDT Hospital Encounter [facility] [address] [place] [address] Enrique Gonzales MD Discharge Disposition: Home or Self Care (Routine Discharge) 08/13/2024 Travel 08/05/2024 Travel 07/23/2024 Telephone [facility] Surgery [facility] [address], [address] [place] [address] Enrique Gonzales MD Schedule Surgery 07/23/2024 Prep for Procedure [facility] [address] [place] [address], [address] [place] [address] Enrique Gonzales MD 07/21/2024 Telephone [facility] [address] [place] [address], [facility] [address] [place] [address] Enrique Gonzales MD Referral from Last 3 Months Family History Medical History Relation Comments Hypertension Father Relation Status Comments Father Mother Social History Tobacco Use Types Packs/Day Years Used Date Smoking Tobacco: Never Smokeless Tobacco: Never Tobacco Cessation:Counseling Given: Yes Alcohol Use Standard Drinks/Week Comments No 0 (1 standard drink = 0.6 oz pur e alcohol) AUDIT-C Answer Date Recorded Frequency of Alcohol Consumption Never 06/25/2018 Average Number of Drinks Not on file 019 Frequency of Binge Drinking Not on file 04/2018 Comments No Sex and Gender Information Value Date Recorded Sex Assigned at Female 05/05/2024 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 Sex Female 11:34 PM CDT Gender Identity Not on file Sexual Orientation Not on file Last Filed Vital Signs Vital Sign Reading Time Taken Comments Blood Pressure 128/72 08/13/2024 12:31 PM CDT Pulse 72 08/13/2024 12:15 PM CDT Temperature 37.3 C (99.1 F) 08/13/2024 9:59 AM CDT Respiratory Rate 18 08/13/2024 12:31 PM CDT Oxygen Saturation 97% 08/13/2024 12:31 PM CDT Inhaled Oxygen Concentration - - Weight 97.5 kg (215 lb) 08/13/2024 9:59 AM CDT Height 154.9 cm (5' 1) 08/13/2024 9:59 AM CDT Body Mass Index 40.62 08/13/2024 9:59 AM CDT Plan of Treatment Health Maintenance Due Date Last Done Comments Hepatitis C 1963 Annual Medicare Wellness Visit 10/23/2011 DTaP, Tdap and Td Vaccines (1 - Tdap) 12/14/2015 12/13/2015, 12/13/2015 RSV Immunization or 60+ Years (1 - 1-dose 75+ series) 2021 COVID-19 Vaccine (4 - season) 2023 02/23/2021, 06/21/2020, 05/24/2020 PHQ-2 (Physician [place]) 03/26/2024 Dexa Scan (General) Completed 09/09/2018 Zoster Vaccines Completed 04/15/2019, 04/2018, 12/10/2014 Pneumococcal Vaccine: 50+ Years Completed 01/11/2023, 01/21/2018, 01/20/2018, Additional history exists Colorectal Cancer Screening Colonoscopy (10 Years) Discontinued 08/13/2024 Meningococcal B Vaccine Aged Out No l onger eligible based on patient's age to complete this topic Meningococcal Vaccine Aged Out No rick darlene eligible based on patient's age to complete this topic RSV Immunizations Under 20 Months Aged Out No longer eligible based on patient's age to complete this topic Medical Devices Implanted Type Area Driver License Reviewing Officer Device Identifier Shelf Expiration Date Model / Serial / Lot Knee Components Knee Components Bilatera l: Knee Procedures Procedure Name Priority Date/Time Associated Diagnosis Comments UPPER GI ENDOSCOPY,BIOPSY 08/13/2024 11:33 AM CDT Screening for colon cancer Epigastric discomfort COLONOSCOPY FLX DX W/COLLJ SPEC WHEN PFRMD 08/13/2024 11:33 AM CDT Screening for colon cancer Epigastric discomfort EGD Routine 08/13/2024 9:38 AM CDT COLONOSCOPY Routine 08/13/2024 9:38 AM CDT PATHOLOGY Routine 08/13/2024 12:00 AM CDT from Last 3 Months Results * Pathology (08/13/2024 12:00 AM CDT) PATHOLOGY [facility] Department of Laboratory Medicine [address] [place] [address] , extension [phone] Pathology Report Surgical Pathology Report Name: EVERARDO TALLEY Specimen #: [id number] Age: 7 1945 (Age: 78) Location: [facility] Sex: F Procedure Date: 08/13/2024 Hospital #: [id number] Date Received: 08/14/2024 Date Reported: 08/20/2024 Provider: ENRIQUE GONZALES MD Source: Gastric biopsies Clinical History: Screening. Epigastric discomfort. Postoperative Diagnosis: Rule out H. pylori. FINAL DIAGNOSIS: Stomach, biopsies: - Gastric mucosa with focal intestinal metaplasia and features of reactive gastropathy, see comment - Immunohistochemistry Helicobacter pylori is negative Diagnosis Comment: Immunohistochemistry for gastrin is positive indicating an antral location of this biopsy. Immunohistochemistry for chromogranin demonstrates no abnormalities. These findings demonstrate no evidence of autoimmune gastropathy. Gross Description: Received in formalin, labeled with a patient label and as gastric antrum biopsy is a 0.2 cm piece of chapa tissue. The specimen is entirely submitted in cassette 1. All immunohistochemical and histochemical tests were developed by and performed at [facility], [address] [place] [address]. All tests reported here have not been cleared or approved by the U.S. Food and Drug Administration (FDA). This laboratory is regulated under CLIA as qualified to perform high-complexity testing. These tests are used for clinical purposes. They should not be regarded as investigational or for research. Positive and negative controls show appropriate reactivity. Gross examination (when applicable) was performed at [facility], [address] [place] [address]. This case was interpreted and signed out at [facility], [address] [place] [address]. Electronically Signed Out CHING ADAN MD [facility] TISSUE GASTRIC BIOPSY SPECIMEN / Unknown 08/13/2024 11:42 AM CDT us Enrique Gonzales MD PATHOLOGY/CYTOLOGY ORDERABL ES Final Result [facility] [address] [place] [address], [id number] from Last 3 Months Insurance [employer] Care Teams Corner Cutter Relationship Specialty Start Date End Date Christine Denney MD [address] [id number] PCP - General 09/28/16
--- OUTSIDE RECORDS SUMMARY | 2024-10-13 08:46 | XMS_ITS | Encounter Summary ---
Author Organization [facility] Care Team Providers Care Skein Bander Name Role Phone Júnior Hilton MD Primary Care Provider + Christine Denney MD Primary Care Provider + [phone] Sultan Maddy Baumann MD Unavailable [phone] Cari Ahumada NP Primary Care Provider + [phone] Christine Denney MD Primary Care Provider + 4 Derik Santana MD Unavailable + [phone] Derik Santana MD Unavailable + [phone] Encounter Details Date Type Department Care Team (Latest Contact Info) Description 09/14/2017 Orders Only [facility] ProviderLiane MD [address] [place] [id number] Social History Tobacco Use Types Packs/Day Years Used Date Smoking Tobacco: Never Assessed Comments Unknown Sex and Gender Information Value Date Recorded Sex Assigned at Not on file 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 Gender Identity Not on file Sexual Orientation Not on file documented as of this encounter Plan of Treatment Not on file documented as of this encounter Procedures Procedure Name Priority Date/Time Associated Diagnosis Comments PROCEDURE - RESULT 09/14/2017 12 :00 AM CDT documented in this encounter Results * PROCEDURE - RESULT (09/14/2017 12:00 AM CDT) Narrative 09/14/2017 12:00 AM CDT Ordered by an unspecified [...] documented as of this encounter Care Teams Skein Bander Relationship Specialty Start Date End Date Júnior Hilton MD PCP - General 04/26/17 10/20/18 Christine Denney MD [address] [address] PCP - General Family Medicine 10/21/18 07/22/19 Cari Ahumada NP [address] [place] [address] [address] PCP - General 07/23/19 07/07/20 Christine Denney MD [address] [address] PCP - General 07/08/20 Sultan Maddy Baumann MD [address] [place] [address] [address] Composition Board Press Operator Cardiovascular Disease 04/22/19 Derik Santana MD [address] [address] Consulting Physician Obstetrics and Gynecology 04/21/21 08/05/24 Derik Santana MD [address] [address] Consulting Physician Obstetrics and Gynecology 12/20/21 08/05/24 documented as of this encounter
--- OUTSIDE RECORDS SUMMARY | 2024-10-13 08:46 | XMS_ITS | Clinical Summary ---
Author Organization [facility] Address [address] [place] [address] Care Team Providers Care Latexer Name Role Phone Unavailable Primary Care Provider Unavailabl e Source Comments [facility],non-owned Affiliates and Associated Physician Practices is amultiple site organization consisting of ambulatory clinics and hospital sitesin [place], [place], [place] and [place]. This disclosure is being madepursuant to the Care Everywhere program and may not contain all information available regarding this patient. Last updated 17.[facility] [place] Allergies Active Allergy Reactions Criticality Noted Date Comments Valsartan Dizziness Low 04/13/2016 Medications * Be aware that medications may not be up to date on this document. Alwaysverify current medications with the patient. amLODIPine (NORVASC) 5 MG tablet 5 mg 3 08/13/2016 Active carvedilol (COREG) 25 MG tablet 25 mg 10/07/2016 Active rosuvastatin (CRESTOR) 20 MG tablet 20 mg 10/07/2016 Active indapamide (LOZOL) 2.5 MG tablet 2.5 mg 10/07/2016 Active losartan (COZAAR) 100 MG tablet 100 mg 08/16/2016 Active fluticasone propionate (FLONASE) 50 MCG/ACT nasal spray 50 Sprays 09/28/2016 Active famotidine (PEPCID) 20 MG tablet 20 mg 10/07/2016 Active meloxicam (Mobic) 15 MG tablet Take 1 (one) tablet by mouth once daily 30 tablet 5 05/01/2024 Active Active Problems Problem Noted Date Diagnosed Date Status post total bilateral knee replacement usi ng cement 10/15/2016 Social History Tobacco Use Types Packs/Day Years Used Date Smoking Tobacco: Never Smokeless Tobacco: Never Tobacco Cessation:Counseling Given: Not Answered Alcohol Use Standard Drinks/Week Comments Never 0 (1 standard drink = 0.6 oz pur e alcohol) Comments Unknown Sex and Gender Information Value Date Recorded Sex Assigned at Not on file 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 Gender Identity Not on file Sexual Orientation Not on file Last Filed Vital Signs Vital Sign Reading Time Taken Comments Blood Pressure - - Pulse - - Temperature - - Respiratory Rate - - Oxygen Saturation - - Inhaled Oxygen Concentration - - Weight 98.9 kg (218 lb) 05/01/2024 2:16 PM ICE HOCKEY COACH Height 154.9 cm (5' 1) 05/01/2024 2:16 PM ICE HOCKEY COACH Body Mass Index 41.19 05/01/2024 2:16 PM ICE HOCKEY COACH Plan of Treatment Health Maintenance Due Date Last Done Comments BONE DENSITY TESTING 1945 HEPATITIS C SCREENING 10/17/1964 DTAP/TDAP/TD VACCINES (1 - Tdap) 1965 PNEUMOCOCCAL VACCINE 50+ (1 of 1 - PCV) 1996 ZOSTER VACCINE (1 of 2) 1996 Respiratory Syncytial Virus (RSV) Vaccine Pt: or over 60 yrs (1 - 1-dose 75+ series) 2021 COVID-19 VACCINE ( season) 2023 02/23/2021, 06/21/2020, 05/24/2020 DEPRESSION SCREENING 03/26/2024 MEDICARE AWV CALENDAR YEAR 2024 INFLUENZA VACCINE (#1) 2024 4, 12/27/2021, 02/23/2021, Additional history exists HEPATITIS B VACCINE Aged Out No longe r eligible based on patient's age to complete this topic HIB VACCINE Aged Out No longer eligi ble based on patient's age to complete this topic HPV VACCINE Aged Out No longer eligi ble based on patient's age to complete this topic MENINGOCOCCAL (Group B) VACCINE SHARED DECISION-MAKING Aged Out No longer eligible based on patient's age to complete this topic MENINGOCOCCAL GROUPS A/C/Y/W VACCINE Aged Out No longer eligible based on patient's age to complete this topic Insurance [employer] MEDICARE ADV HMO & PPO
--- OUTSIDE RECORDS SUMMARY | 2024-10-13 08:46 | XMS_ITS | Referral Summary ---
Author Organization [place] [address] [facility] Address [facility] [place] [address] Care Team Providers Care Train Announcer Name Role Phone Sultan Maddy Baumann MD Unavailable [phone] Christine Denney MD Primary Care Provider [phone] Encounters Date Type Department Care Team Description 08/01/2024 11:32 AM CDT - 08/01/2024 11:59 PM CDT Hospital Encounter [facility] Di[facility] Imaging [address] [place] [address] Pain Discharge Disposition: Discharge to home or self care 07/24/2024 Telephone [facility] Cardiology [address] [facility] [address] [address] Sultan Maddy Baumann MD Surgical Clearance from Last 3 Months Allergies Active Allergy Reactions Criticality Noted Date Comments Valsartan Dizziness Low 04/13/2016 Medications carvedilol (COREG) 25 mg tabletIndications: hypertension Take 1 tablet (25 mg total) by mouth 2 (two) times a day 3 9 Active losartan (COZAAR) 100 mg tabletIndications: hypertension Take 1 tablet (100 mg total) by mouth every morning 4 9 Active famotidine (PEPCID) 20 mg tabletIndications: gastroesophageal reflux disease Take 1 tablet (20 mg total) by mouth every morning prn Active rosuvastatin (CRESTOR) 20 mg tablet Take 1 tablet (20 mg total) by mouth nightly 2 9 Active cholecalciferol (VITAMIN D-3) 2000 unit capsuleIndications :Vitamin D Deficiency Take 1 capsule (2,000 Units total) by mouth every morning Active fluticasone propionate (FLONASE) 50 mcg/actuation nasal sprayIndications:A llergic Conjunctivitis Administer 1 spray into each nostril as needed 7 Active betamethasone dipropionate (DIPROLENE) 0.05 % creamIndications:s kin rash,feet Apply topically as needed Active Ventolin HFA 90 mcg/actuation inhaler INHALE 1 TO 2 PUFFS BY MOUTH 4 TIMES DAILY NEEDED 18 g 0 Active meclizine (ANTIVERT) 25 mg tabletIndications: Vertigo Take 1 tablet (25 mg total) by mouth 3 (three) times a day as needed Active cetirizine (ZyrTEC) 10 mg tabletIndications: Allergic Conjunctivitis Take 1 tablet (10 mg total) by mouth as needed Active OneTouch Verio test strips strip 1 Active amLODIPine (NORVASC) 10 mg tabletIndications: hypertension Take 1 tablet (10 mg total) by mouth every morning 2 Active tirzepatide (Mounjaro) 2.5 mg/0.5 mL pen injectorIndication s:type 2 diabetes mellitus Inject 0.5 mL (2.5 mg total) under the skin once a week in early AM Active Active Problems Problem Noted Date Diagnosed Date Severe obesity 11/07/2023 Body mass index 40.0-44.9, adult (CMS/HCC) 11/06 Morbid (severe) obesity due to excess calories 0 11/01/2022 Body mass index (BMI) 45.0-49.9, adult 3 Dizziness and giddiness 01/16/2022 Sensorineural hearing loss (SNHL) of both ears 1 Complex atypical endometrial hyperplasia 022 Overview (05/21/2021): Added automatically from request for surgery [id number] Postmenopausal bleeding 02/01/2021 Overview (04/21/2021): ? Due to the inability to complete endometrial biopsy in the office, hysteroscopy, dilation and curettage was recommended. The procedure was described to the patient. The general risks of surgery were reviewed, including infection varying from minor to severe, hemorrhage requiring blood transfusion or additional emergency procedures, injury to surrounding organs potentially requiring additional surgery leading to a prolonged or difficult recovery. The expected course of recovery was discussed. The patient had the opportunity to ask questions and have them answered by me. To the best of my knowledge the patient expressed understanding and consented to undergo hysteroscopy, dilation and curettage with possible MyoSure. Diabetes mellitus type II, non insulin dependent 12/15/2020 Assessment & Plan (12/15/2020 1:16 PM CDT): The A1c on 09/15/2020 was 7.3. On no hypoglycemics at this time. Impingement syndrome of right shoulder Nontraumatic incomplete tear of right rotator cu ff 11/25/2020 Heart murmur, systolic 10/21/2018 Assessment & Plan (12/14/2020 6:29 PM CDT): Echo 04/21/2019 showed normal ejection fraction. Trace MR. Aortic valve sclerosis but no stenosis. No AR. Assessment & Plan (05/21/2020 6:19 PM FILLER FEEDER): Echo 04/21/2019 showed normal ejection fraction. Trace MR. Aortic valve sclerosis but no stenosis. No AR. Assessment & Plan (11/14/2019 4:50 PM CDT): Echo 04/21/2019 showed normal ejection fraction. Trace mitral regurgitation. Aortic valve sclerosis but no stenosis. No aortic regurgitation Assessment & Plan (05/09/2019 5:55 PM FILLER FEEDER): Echo 04/21/2019 showed normal ejection fraction. Trace mitral regurgitation. Aortic valve sclerosis but no stenosis. No aortic regurgitation. Assessment & Plan (10/21/2018 10:29 AM CDT): Echo Doppler before the next appointment. 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 Ferrous sulfate. Assessment & Plan (05/21/2020 6:18 PM FILLER FEEDER): Iron deficiency anemia. On ferrous sulfate. On 12/27/2019 hemoglobin 11.8, hematocrit 38. Assessment & Plan (11/14/2019 4:49 PM CDT): Iron deficiency anemia. Oral ferrous sulfate. Assessment & Plan (05/09/2019 5:53 PM FILLER FEEDER): Iron-deficiency anemia. Oral ferrous sulfate. Assessment & Plan (10/21/2018 10:28 AM CDT): Iron deficiency anemia. Oral iron. Precordial pain 08/06/2015 Overview (10/18/2018): Negative stress echo 07/31/2013. Assessment & Plan (12/15/2020 1:14 PM CDT): Negative stress echo 07/31/2013. No chest pain on this visit. Assessment & Plan (05/21/2020 6:21 PM FILLER FEEDER): Negative stress echo 07/31/2013. Assessment & Plan (11/14/2019 4:51 PM CDT): Negative stress echo 07/31/2013 and 01/29/2017. Assessment & Plan (05/09/2019 5:50 PM FILLER FEEDER): Negative stress echo 07/31/2013 and 01/29/2017. Assessment & Plan (10/21/2018 10:27 AM CDT): Negative stress echo 07/31/2013. Negative stress echo 01/29/2017. No chest pain on this visit. The EKG today shows a normal sinus rhythm, T-wave changes. Hypertensive heart disease without heart failure 08/06/2015 Assessment & Plan (12/15/2020 1:14 PM CDT): Salt restriction. Amlodipine. Carvedilol. Lasix. Lozol. Losartan. Potassium chloride. Blood pressure 132/80. Assessment & Plan (05/24/2020 11:52 AM FILLER FEEDER): Salt restriction. Amlodipine. Carvedilol. Lasix. Lozol. Losartan. Potassium chloride. Blood pressure 132/80. Assessment & Plan (11/17/2019 11:04 AM CDT): Blood pressure 162/90. Salt restriction. Continue the current regimen. The blood pressure is elevated because of the excruciating pain from lumbar radiculopathy. Assessment & Plan (05/12/2019 11:56 AM FILLER FEEDER): Blood pressure 122/74. Salt restriction. Continue the current regimen. Assessment & Plan (10/21/2018 10:27 AM CDT): Blood pressure 120/60. Salt restriction. Continue the current regimen. Hyperlipidemia 08/06/2015 Assessment & Plan (12/14/2020 6:27 PM CDT): Low-fat low-cholesterol diet. Crestor. In September 2019 the LDL was 53, triglycerides 67. Assessment & Plan (05/21/2020 6:20 PM FILLER FEEDER): Low-fat low-cholesterol diet. Crestor. In September 2019 the LDL was 53. Triglycerides 67. Assessment & Plan (11/17/2019 11:04 AM CDT): Low-fat low-cholesterol diet. Crestor. In September 2019 the LDL was 53. Triglycerides 67. Assessment & Plan (05/09/2019 5:52 PM FILLER FEEDER): Low-fat low-cholesterol diet. Crestor 20 mg bedtime daily. On 01/10/2018 the LDL was 48. On 12/20/2018 the LDL was 51. Assessment & Plan (10/18/2018 6:35 PM CDT): Low-fat low-cholesterol diet. Crestor 20 mg bedtime daily. On 01/10/2017 the triglycerides were 61, total cholesterol 136, HDL 76, LDL 48. Pure hypercholesterolemia 06/11/2014 Vitamin D deficiency 06/11/2014 Knee pain 12/08/2009 Immunizations Immunization Administration Dates Next Due Influenza, Quad, Adjuvantate d, Intramuscular 02/23/2021,01/02/2020,12/31/2019 Influenza, Quadrivalent, Spl it, Intramuscular 02/23/2021,01/02/2020,01/06/2019 Influenza, Trivalent, High D ose, Split, Preservative Free, Intramuscular 01/21/2018,01/20/2018 Influenza, Unspecified 01/27/2016,12/30/2015, Moderna SARS-CoV-2 Monovalen t Vaccination (12+ YRS) 06/21/2020,06/21/2020,05/24/2020,05/24 PPD TEST 12/13/2015 Pneumococcal Conjugate PCV 13 11/06/2016 Pneumococcal Polysaccharide PPV23 01/21/2018, Td, adsorbed 12/13/2015 ZOSTER LIVE 12/10/2014 ZOSTER Recombinant 04/15/2019,11/25/2018 Social History Tobacco Use Types Packs/Day Years Used Date Smoking Tobacco: Never Passive Smoke Exposure: Never Smokeless Tobacco: Never Tobacco Cessation:Counseling Given: Not Answered Alcohol Use Standard Drinks/Week Comments Never 0 (1 standard drink = 0.6 oz pur e alcohol) AUDIT-C Answer Date Recorded Q1: How often do you have a drink containing alc ohol? Never 06/12/2022 Average Number of Drinks Not on file 023 Frequency of Binge Drinking Not on file 05/25 Personal Safety Answer Date Recorded Have you ever been in or are you currently in a harmful physical or emotional relationship or is someone making you feel afraid or unsafe? Denies 06/20/2022 Comments No Sex and Gender Information Value Date Recorded Sex Assigned at Not on file Legal Sex Female 1:55 AM FILLER FEEDER Gender Identity Not on file Sexual Orientation Not on file Last Filed Vital Signs Vital Sign Reading Time Taken Comments Blood Pressure 124/68 11/07/2023 12:46 PM CDT Pulse 67 11/07/2023 12:46 PM CDT Temperature 36.4 C (97.6 F) 06/20/2022 9:40 AM CDT Respiratory Rate 18 06/20/2022 10:10 AM CDT Oxygen Saturation 98% 11/07/2023 12:46 PM CDT Inhaled Oxygen Concentration - - Weight 98.9 kg (218 lb) 11/07/2023 12:46 PM CDT Height 154.9 cm (5' 1) 11/07/2023 12:46 PM CDT Body Mass Index 41.19 11/07/2023 12:46 PM CDT Plan of Treatment Not on file Medical Devices Implanted Type Area Bailer Operators Supervisor Device Identifier Shelf Expiration Date Model / Serial / Lot Other - See Comments Other - see comments Bilatera l: Knee Description:Bilateral knee r eplacements Procedures Procedure Name Priority Date/Time Associated Diagnosis Comments XR SPINE CERVICAL COMPLETE 4 OR 5 VW Schedule Routine, Read Routine (OP Routine) 08/01/2024 11:39 AM CDT Pain SCREENING MAMMOGRAM BILATERAL W JEFFREY Schedule Routine, Read Routine (OP Routine) 12/25/2023 11:21 AM CDT Screening mammogram, encounter for LIPID PANEL Routine 11/07/2023 2:22 PM CDT Mixed hyperlipidemia EGFR Routine 06/13/2022 9:22 AM CDT Pre-op testing POCT HEMOGLOBIN A1C Routine 06/13/2021 3:55 PM CDT from Last 3 Months or Most Recently Relevant to Health Maintenance Results * XR Spine Cervical Complete 4 or 5 Views (08/01/2024 11:39 AM CDT) Anatomical Region Laterality Modality Spine N/A Computed Radiogr aphy 08/03/2024 8:35 PM CDT Narrative 08/03/2024 8:39 PM CDT EXAM DESCRIPTION: XR SPINE CERVICAL COMPLETE 4 OR 5 VW REASON FOR STUDY: PAIN Posterior rt side neck pain x 3 wks, NKI, Pt has lori in cannot be removed FINDINGS: No acute fracture. No prevertebral soft tissue swelling. Mild anterolisthesis of C4-C6. Moderate C2-C4 and C5-C7 degenerative disc disease. Right-sided C3-C4 and C5-C6, and left-sided C3-C6 foraminal impingement. IMPRESSION: Moderate C2-C4 and C5-C7 degenerative disc disease. Right-sided C3-C4 and C5-C6, and left-sided C3-C6 foraminal impingement. THIS IS AN ELECTRONICALLY VERIFIED FINAL REPORT 08/03/2024 8:39 PM - Electronically signed by Júnior Lowry M.D. T: Report ID: [id number] Reading Location: [id number] Procedure Note Júnior Lowry MD - 08/03/2024 EXAM DESCRIPTION: XR SPINE CERVICAL COMPLETE 4 OR 5 VW REASON FOR STUDY: PAIN Posterior rt side neck pain x 3 wks, NKI, Pt has lori in cannot beremoved FINDINGS: No acute fracture. No prevertebral soft tissue swelling. Mild anterolisthesis of C4-C6. Moderate C2-C4 and C5-C7 degenerative discdisease. Right-sided C3-C4 and C5-C6, and left-sided C3-C6 foraminal impingement. IMPRESSION: Moderate C2-C4 and C5-C7 degenerative disc disease. Right-sided C3-C4 and C5-C6, and left-sided C3-C6 foraminalimpingement. THIS IS AN ELECTRONICALLY VERIFIED FINAL REPORT 08/03/2024 8:39 PM - Electronically signed by Júnior Lowry M.D. T: Report ID: [id number] Reading Location: [id number] Christine Denney MD IMG XR PROCEDURES Final Result * Screening Mammogram Bilateral W Jeffrey (12/25/2023 11:21 AM CDT) Anatomical Region Laterality Modality Breast Bilateral Mammography Impressions 12/25/2023 11:51 AM CDT BI-RADS ATLAS category (overall): 2 - Benign There is no mammographic evidence of malignancy. A 1 year screening mammogram is recommended. The patient has been or will be contacted. We recommend annual screening mammography for women at average risk of breast cancer beginning at age 40, based on guidelines of the [place] [employer] (ACR Practice Parameter for the Performance of Screening and Diagnostic Mammography) and [place] [employer]. For women with and elevated risk of breast cancer, please refer to the ACR Practice Parameter for specific screening recommendations. The patient will be entered into a reminder system with a target due date of 1 year for her next screening exam. Narrative 12/25/2023 11:51 AM CDT Screening Mammogram Bilateral W Jeffrey: 12/25/23 The study was acquired using full field digital technology and interpreted from soft copy. 2D digital mammographic views, as well as 3D digital tomosynthesis were performed in the CC and MLO projections. CLINICAL: Screening mammogram, encounter for No relevant medical history has been documented for this patient. History of breast cancer in Neg Hx. COMPARISONS: 12/22/2022 Screening Mammogram Bilateral W Jeffrey 12/20/2021 Screening Mammogram Bilateral W Jeffrey 09/23/2020 Screening Mammogram Bilateral W Jeffrey 06/05/2019 Screening Mammogram Bilateral W Jeffrey 05/03/2018 Screening Mammogram Bilateral W Jeffrey BREAST TISSUE: The breasts are almost entirely fatty. FINDINGS: There are stable postoperative changes in the subareolar left breast. A biopsy clip is also unchanged in the left breast. There are benign calcifications in both breasts. There is no new suspicious finding in either breast on mammogram. us Self Screening Mammogram IMG MAMMO PROCEDURES Fi nal Result * Lipid panel (11/07/2023 2:22 PM CDT) Cholesterol 135 <200 mg/dL [facility] HDL 65 > OR = 50 mg/dL [facility] Triglycerides 46 <150 mg/dL [facility] LDL 57 mg/dL (calc) [facility] Comment: Reference range: <100 Desirable range <100 mg/dL for primary prevention; <70 mg/dL for patients with CHD or diabetic patients with > or = 2 CHD risk factors. LDL-C is now calculated using the Taran calculation, which is a validated novel method providing better accuracy than the Friedewald equation in the estimation of LDL-C. Artis SS et al. MU. 2013;310(19): 5626-7271 (http://education.[employer] Ade[employer]za/faq/HGQ186) Chol/HDL ratio 2.1 <5.0 (calc) [facility] Non-HDL, (LDL+VLDL) 70 <130 mg/dL (calc) [facility] Comment: For patients with diabetes plus 1 major ASCVD risk factor, treating to a non-HDL-C goal of <100 mg/dL (LDL-C of <70 mg/dL) is considered a therapeutic option. Blood 11/07/2023 2:22 PM CDT 11/07/2023 2:22 PM CDT Sultan Maddy Baumann MD LAB BLOOD ORDERABLES Final Re sult ANT [facility] [address] [facility] [place] [address] * eGFR (06/13/2022 9:22 AM CDT) eGFR 67 mL/min/1. 73 m2 [facility] Comment: Interpretive Data Reference Interval Normal >/= 90 mL/min/1.73m2 Mildly decreased* 60 - 89 mL/min/1.73m2 Mildly to moderately decreased 45 - 59 mL/min/1.73m2 Moderately to severely decreased 30 - 44 mL/min/1.73m2 Severely decreased 15 - 29 mL/min/1.73m2 Kidney Failure < 15 mL/min/1.73m2 *Relative to young adult level Estimated glomerular filtration rate is determined by the 2020 CKD-EPI equation recommended by the National Kidney Foundation (A Unifying Approach to GFR Estimation: Recommendations of the NKF-ASK Task Force on Reassessing the Inclusion of Race in Diagnosing Kidney Disease, JASN 202). The CKD-EPI equation should not be used for patients with unstable renal function and has not been validated in children and those over 70. Current interpretive data was last reviewed 2021. Testing performed by: [facility], [address] [place] [address], [place]., [address] Blood 06/13/2022 9:22 AM CDT 06/13/2022 9:33 AM CDT Cheri Cabello MD LAB BLOOD ORDERABLES Fin al Result Performing Organization Address [facility] Co de Phone Number [facility] [address] [facility] Department [place] [address] * (ABNORMAL) POCT hemoglobin A1c (06/13/2021 3:55 PM CDT) Hgb A1C, POC 7.4(H) 4.0 - 5.6 % [facility] Est Average Gluc POC 166 mg/dL [facility] Comment: The ADA recommends reporting an estimated Average Glucose (eAG) with all Hemoglobin A1c results using the equation derived from a study of 507 normal and diabetic adults. Minority populations were underrepresented and children were not included. (Diabetes Care 31:1672-3718, 2008). The eAG is not equivalent to a fasting glucose. Blood 06/13/2021 3:55 PM CDT 06/13/2021 3:55 PM CDT Ainsley White MD POINT OF CARE TEST CHAPARRO MTZ Final Result Performing Organization Address City/[facility]/ZIP Co de Phone Number [facility] Department [place] [address] from Last 3 Months or Most Recently Relevant to Health Maintenance Insurance [employer] SENIOR SUPPLEMENT HUMANA CHOICE MEDICARE PPO HUMANA CHOICE MEDICARE PPO HU[employer]NA CHOICE MEDICARE PPO Care Teams Train Announcer Relationship Specialty Start Date End Date Christine Denney MD [address] [address] PCP - General 07/08/20 Sultan Maddy Baumann MD [address] [facility] [address] [address] Lamination Spinner Cardiovascular Disease 04/22/19
--- OUTSIDE RECORDS SUMMARY | 2024-10-13 08:46 | XMS_ITS | Encounter Summary ---
Author Organization [facility] Care Team Providers Care Campaign Associate Name Role Phone Júnior Hilton MD Primary Care Provider + Christine Denney MD Primary Care Provider + [phone] Sultan Maddy Baumann MD Unavailable [phone] Cari Ahumada NP Primary Care Provider + [phone] Christine Denney MD Primary Care Provider + [phone] Derik Santana MD Unavailable + [phone] Derik Santana MD Unavailable + [phone] Encounter Details Date Type Department Care Team (Latest Contact Info) Description 07/31/2013 Orders Only [facility]IN[facility] ProviderLiane MD [address] [place] [address] Social History Tobacco Use Types Packs/Day Years Used Date Smoking Tobacco: Never Assessed Comments Unknown Sex and Gender Information Value Date Recorded Sex Assigned at Not on file Legal Sex Female 1:55 AM DINING SERVICE WORKER Gender Identity Not on file Sexual Orientation Not on file documented as of this encounter Plan of Treatment Not on file documented as of this encounter Procedures Procedure Name Priority Date/Time Associated Diagnosis Comments CARDIOLOGY REPORT 04/18/2016 12: 00 AM DINING SERVICE WORKER documented in this encounter Results * CARDIOLOGY REPORT (04/18/2016 12:00 AM DINING SERVICE WORKER) Anatomical Region Laterality Modality Other Narrative 04/18/2016 12:00 AM DINING SERVICE WORKER Ordered by an unspecified provider. us Historical Provider [facility] ROSI LEONG Final Result documented in this encounter Visit Diagnoses Not on filedocumented in this encounter Additional Health Concerns Infection Onset Date Last Indicated Resolved Time COVID: Suspected 07/23/2019 07/23/2019 07/25/2019 3:02 PM CDT Respiratory Infection (EVIE), contact + droplet Comment:Automatically added due to negative COVID-19 result. 07/25/2019 07/25/2019 08/08/2019 3:0 5 AM CDT documented as of this encounter Care Teams Campaign Associate Relationship Specialty Start Date End Date Júnior Hilton MD PCP - General 04/26/17 10/20/18 Christine Denney MD [address] [place] [address] PCP - General Family Medicine 10/21/18 07/22/19 Cari Ahumada NP [address] [facility] [address] [address] PCP - General 07/23/19 07/07/20 Christine Denney MD [address] [place] [address] PCP - General 07/08/20 Sultan Maddy Baumann MD [address] [facility] [address] [address] An/Ssn 2 4 Operator Cardiovascular Disease 04/22/19 Derik Santana MD [address] [address] Consulting Physician Obstetrics and Gynecology 04/21/21 08/05/24 Derik Santana MD [address] [address] Consulting Physician Obstetrics and Gynecology 12/20/21 08/05/24 documented as of this encounter
--- OUTSIDE RECORDS SUMMARY | 2024-10-13 08:46 | XMS_ITS | Patient Health Record ---
Author Organization [facility] Address [address] [place], [place] [id number] Care Team Providers Care Voice Network Administrator Name Role Phone SUSANA DE Unavailable [phone] Christine Denney Unavailable Unavailable Reason For Referral No Information Plan Of Treatment No Information Insurance Providers Payer Name Payer Address Payer Phone Subscriber Number Group Number Insured Name Patient Relationship to Insured Coverage Start Date Coverage End Date Medicare Part B [place] [address] [place] [address] [id number] EVERARDO BELTRE Self - patient is the insured [facility] [address] [place] [id number] EVERARDO BELTRE Self - patient is the insured
--- OUTSIDE RECORDS SUMMARY | 2024-10-13 08:46 | XMS_ITS | Clinical Summary ---
Author Organization [place] [id number] [facility] Address [facility] [place] [address] Care Team Providers Care Block Mechanic Name Role Phone Sultan Maddy Baumann MD Unavailable [phone] Christine Denney MD Primary Care Provider Allergies Active Allergy Reactions Criticality Noted Date [...] obesity 11/07/2023 Body mass index 40.0-44.9, adult ([facility]) 11/06 Morbid (severe) obesity due to excess calories 0 11/01/2022 Body mass index (BMI) 45.0-49.9, adult 3 Dizziness and giddiness 01/16/2022 Sensorineural hearing loss (SNHL) of both ears 1 Complex atypical endometrial hyperplasia 022 Overview (05/21/2021): Added automatically from request for surgery [id number] Postmenopausal bleeding 02/01/2021 Overview (04/21/2021): ? Due [...] AR. Assessment & Plan (05/21/2020 6:19 PM CONTENT STRATEGY LEAD): Echo 04/21/2019 showed normal ejection fraction. Trace MR. Aortic valve sclerosis but no stenosis. No AR. Assessment & Plan (11/14/2019 4:50 PM CDT): Echo 04/21/2019 showed normal ejection fraction. Trace mitral regurgitation. Aortic valve sclerosis but no stenosis. No aortic regurgitation Assessment & Plan (05/09/2019 5:55 PM CONTENT STRATEGY LEAD): Echo 04/21/2019 showed normal ejection fraction. Trace [...] sulfate. Assessment & Plan (05/21/2020 6:18 PM CONTENT STRATEGY LEAD): Iron deficiency anemia. On ferrous sulfate. On 12/27/2019 hemoglobin 11.8, hematocrit 38. Assessment & Plan (11/14/2019 4:49 PM CDT): Iron deficiency anemia. Oral ferrous sulfate. Assessment & Plan (05/09/2019 5:53 PM CONTENT STRATEGY LEAD): Iron-deficiency anemia. Oral ferrous sulfate. Assessment & Plan (10/21/2018 10:28 AM CDT): Iron deficiency anemia. Oral iron. Precordial pain 08/06/2015 Overview (10/18/2018): Negative stress echo 07/31/2013. Assessment & Plan (12/15/2020 1:14 PM CDT): Negative stress echo 07/31/2013. No chest pain on this visit. Assessment & Plan (05/21/2020 6:21 PM CONTENT STRATEGY LEAD): Negative stress echo 07/31/2013. Assessment & Plan (11/14/2019 4:51 PM CDT): Negative stress echo 07/31/2013 and 01/29/2017. Assessment & Plan (05/09/2019 5:50 PM CONTENT STRATEGY LEAD): Negative stress echo 07/31/2013 and 01/29/2017. Assessment [...] 132/80. Assessment & Plan (05/24/2020 11:52 AM CONTENT STRATEGY LEAD): Salt restriction. Amlodipine. Carvedilol. Lasix. Lozol. Losartan. Potassium chloride. Blood pressure 132/80. Assessment & Plan (11/17/2019 11:04 AM CDT): Blood pressure 162/90. Salt restriction. Continue the current regimen. The blood pressure is elevated because of the excruciating pain from lumbar radiculopathy. Assessment & Plan (05/12/2019 11:56 AM CONTENT STRATEGY LEAD): Blood pressure 122/74. Salt restriction. Continue the current regimen. Assessment & Plan (10/21/2018 10:27 AM CDT): Blood pressure 120/60. Salt restriction. Continue the current regimen. Hyperlipidemia 08/06/2015 Assessment & Plan (12/14/2020 6:27 PM CDT): Low-fat low-cholesterol diet. Crestor. In September 2019 the LDL was 53, triglycerides 67. Assessment & Plan (05/21/2020 6:20 PM CONTENT STRATEGY LEAD): Low-fat low-cholesterol diet. Crestor. In September 2019 the LDL was 53. Triglycerides 67. Assessment & Plan (11/17/2019 11:04 AM CDT): Low-fat low-cholesterol diet. Crestor. In September 2019 the LDL was 53. Triglycerides 67. Assessment & Plan (05/09/2019 5:52 PM CONTENT STRATEGY LEAD): Low-fat low-cholesterol diet. Crestor 20 mg bedtime daily. On 01/10/2018 the LDL was 48. On 12/20/2018 the LDL was 51. Assessment & Plan (10/18/2018 6:35 PM CDT): Low-fat low-cholesterol diet. Crestor 20 mg bedtime daily. On 01/10/2017 the triglycerides were 61, total cholesterol 136, HDL 76, LDL 48. Pure hypercholesterolemia 06/11/2014 Vitamin D deficiency 06/11/2014 Knee pain 12/08/2009 Encounters Date Type Department Care Team Description 08/01/2024 11:32 AM CDT - 08/01/2024 11:59 PM CDT Hospital Encounter [facility] Diag Imaging [address] [place] [address] Pain Discharge Disposition: Discharge to home or self care 07/24/2024 Telephone [facility] Medical Group Cardiology [address] [facility] [address] [place] [address] Sultan Maddy Baumann MD Surgical Clearance from Last 3 Months Immunizations Immunization Administration Dates Next Due Influenza, Quad, Adjuvantate d, Intramuscular 02/23/2021,01/02/2020,12/31/2019 Influenza, Quadrivalent, Spl it, Intramuscular 02/23/2021,01/02/2020,01/06/2019 Influenza, Trivalent, High D ose, Split, Preservative Free, Intramuscular 01/21/2018,01/20/2018 Influenza, Unspecified 01/27/2016,12/30/2015, Moderna SARS-CoV-2 Monovalen t Vaccination (12+ YRS) 06/21/2020,06/21/2020,05/24/2020,05/24 PPD TEST 12/13/2015 Pneumococcal Conjugate PCV 13 11/06/2016 Pneumococcal Polysaccharide PPV23 01/21/2018, Td, adsorbed 12/13/2015 ZOSTER LIVE 12/10/2014 ZOSTER Recombinant 04/15/2019,11/25/2018 Surgical History Surgery Date Site/Laterality Comments KNEE SURGERY 03/26/2012 - 03/25/2013 Right BREAST BIOPSY KNEE SURGERY Left COMBINED HYSTEROSCOPY DIAGNOSTIC / D&C 04/21/2021 Medical History Medical History Date Comments Precordial chest pain Hypertensive heart disease w ithout heart failure Hyperlipidemia, unspecified Anemia, unspecified Vertigo Sleep apnea wears cpap Hypertension BUDDY (obstructive sleep apnea) Vertigo Postoperative delirium Pseudocholinesterase deficiency Hard to intubate patient states that she was told her airway does not go straight GERD (gastroesophageal reflux disease) Family History Medical History Relation Name Comments Diabetes Brother Hypertension Brother Stomach cancer Father Ovarian cancer Father's Sister HTN Mother Diabetes Sister Hypertension Sister Anesthesia problems Neg Hx Breast cancer Neg Hx Relation Name Status Comments Brother Father Father's Sister Mother Alive Sister Social History Tobacco Use Types Packs/Day Years [...] on file Legal Sex Female 1:55 AM CONTENT STRATEGY LEAD Gender Identity Not on file Sexual Orientation Not on file Obstetrics History Para Term AB IAB SAB Ectopic Multiple Livin g Live Births 5 5 5 1 4 Date Outcome GA Total Labor Labor/2nd/3rd Weight Sex Type Anes PTL Alexa A1 A5 Name Clin Term Term Term Term Term Comments Twins one passed Last Filed Vital Signs Vital Sign Reading [...] 11/07/2023 12:46 PM CDT Plan of Treatment Health Maintenance Due Date Last Done Comments Albumin Creatinine Ratio, Urine 1945 Depression Screening 1945 Hepatitis C Screening 1945 Dilated Eye Exam 1945 Foot Exam 1945 Hepatitis B Screening 1964 Well Visit 65+ 10/23/2011 DTaP/Tdap/Td Vaccine (1 - Tdap) 12/14/2015 6 Osteoporosis Screening-Bone Density Scan 09/09/2020 09/09/2018 Hemoglobin A1C 12/14/2021 06/13/2021, 09/20/2017 Fall Risk Assessment 06/16/2022 06/16/2021 eGFR 06/14/2023 06/13/2022, 12/24, 06/13/2021 Covid-19 Vaccine (6 - 2023-2 5 season) 2023 02/23/2021, 06/21/2020, 06/21/2020, Additional history exists Lipid Panel 11/06/2024 11/07/2023, 11/2022, 08/24/2021, Additional history exists Influenza Vaccine (#1) 2024 , 12/27/2021, 02/23/2021, Additional history exists Pneumococcal vaccine 65+ Completed 018, 01/20/2018, 11/06/2016 Zoster Vaccine Completed 04/15/2019, 04/2018, 12/10/2014 Breast Cancer Screening-Mammogram Discontinued 12/25/2023, 12/22/2022, 12/22/2022, Additional history exists Medical Devices Implanted Type Area Sail Cutter Device Identifier Shelf Expiration Date Model / Serial / Lot Other - See Comments Other - see comments Bilbrandana l: Knee Description:Bilateral knee r eplacements Procedures [...] by Júnior Lowry M.D. T: Report ID: [id number] Reading Location: [id number] Procedure Note Júnior Lowry MD - 08/03/2024 [...] by Júnior Lowry M.D. T: Report ID: [id number] Reading Location: [id number] Christine Denney MD IMG XR PROCEDURES Final [...] age 40, based on guidelines of the [place] [employer] (ACR Practice Parameter for the Performance of Screening and Diagnostic Mammography) and [place] [employer]. For women [...] equation in the estimation of LDL-C. Artis SAUCEDO et al. MU. 2013;310(19): 5961-6915 (http://education.SheZoom/faq/YPA455) Chol/HDL ratio 2.1 <5.0 (calc) [facility] [...] MD LAB BLOOD ORDERABLES Final Re sult [facility] [address] [place] [address] * eGFR (06/13/2022 9:22 AM CDT) eGFR [...] of Race in Diagnosing Kidney Disease, JASN 2020). The CKD-EPI equation should not be used for patients with unstable renal function and has not been validated in children and those over 70. Current interpretive data was last reviewed 2021. Testing performed by: [facility], [address] [place] [address], [place]., [address] Blood 06/13/2022 9:22 AM CDT 06/13/2022 9:33 AM CDT us Cheri Cabello MD LAB BLOOD ORDERABLES Fin al Result Performing Organization Address City/[facility]/ZIP Co de Phone Number [facility] [address] [facility] Department [place] [address] * (ABNORMAL) POCT hemoglobin A1c (06/13/2021 3:55 PM CDT) [facility] Hgb A1C, POC 7.4(H) 4.0 - 5.6 % [facility] Est Average Gluc POC 166 mg/dL [facility] Comment: The ADA recommends reporting an estimated Average Glucose (eAG) with all Hemoglobin A1c results using the equation derived from a study of 507 normal and diabetic adults. Minority populations were underrepresented and children were not included. (Diabetes Care 31:5516-9546, 2008). The eAG is not equivalent to a fasting glucose. Blood 06/13/2021 3:55 PM CDT 06/13/2021 3:55 PM CDT us Ainsley White MD POINT OF CARE TEST ORDOlvin MTZ Final Result Performing Organization Address City/[facility]/ZIP Co de Phone Number [facility] Department [place] [address] from Last 3 Months or Most Recently Relevant to Health Maintenance Insurance [employer] SENIOR SUPPLEMENT HU[employer]NA CHOICE MEDICARE PPO [employer] CHOICE MEDICARE PPO [employer] CHOICE MEDICARE PPO Care Teams Block Mechanic Relationship Specialty Start Date End Date Christine Denney MD [address] [address] PCP - General 07/08/20 Sultan Maddy Baumann MD [address] [facility] [address] [address] Customs Examiner Cardiovascular Disease 04/22/19
--- OUTSIDE RECORDS SUMMARY | 2024-10-13 08:46 | XMS_ITS | Encounter Summary ---
Author Organization [facility] Facility Care Team Providers Care Automatic Vulcanizing Operator Name Role Phone Júnior Hilton MD Primary Care Provider + Christine Denney MD Primary Care Provider + 4 Sultan Maddy Baumann MD Unavailable [phone] Cari Ahumada NP Primary Care Provider + [phone] Christine Denney MD Primary Care Provider + 4 Derik Santana MD Unavailable + [phone] Derik Santana MD Unavailable + [phone] Encounter Details Date Type Department Care Team (Latest Contact Info) Description 08/05/2014 Orders Only [facility] CLINCONV ProviderLiane MD [address] [place] [address] Social History Tobacco Use Types Packs/Day Years Used Date Smoking Tobacco: Never Assessed Comments Unknown Sex and Gender Information Value Date Recorded Sex Assigned at Not on file Legal Sex Female 1:55 AM 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 us Historical [...] documented as of this encounter Care Teams Automatic Vulcanizing Operator Relationship Specialty Start Date End Date Júnior Hilton MD PCP - General 04/26/17 10/20/18 Christine Denney MD [address] [place] [address] PCP - General Family Medicine 10/21/18 07/22/19 Cari Ahumada NP [address] [facility] [address] [address] PCP - General 07/23/19 07/07/20 Christine Denney MD [address] [place] [address] PCP - General 07/08/20 Sultan Maddy Baumann MD [address] [facility] [address] [address] Soil And Plant Scientist Cardiovascular Disease 04/22/19 Derik Santana MD [address] [address] Consulting Physician Obstetrics and Gynecology 04/21/21 08/05/24 Derik Santana MD [address] [address] Consulting Physician Obstetrics and Gynecology 12/20/21 08/05/24 documented as of this encounter
--- OUTSIDE RECORDS SUMMARY | 2024-10-13 08:46 | XMS_ITS | Encounter Summary ---
Author Organization [facility] Facility Care Team Providers Care Dermatology Physician Assistant Name Role Phone Júnior Hilton MD Primary Care Provider + Christine Denney MD Primary Care Provider + 4 Sultan Maddy Baumann MD Unavailable [phone] Cari Ahumada NP Primary Care Provider + [phone] Christine Denney MD Primary Care Provider + 4 Derik Santana MD Unavailable + [phone] Derik Santana MD Unavailable + [phone] Encounter Details Date Type Department Care Team (Latest Contact Info) Description 06/12/2014 Orders Only [facility] CLINCONV ProviderLiane MD [address] [place] [address] Social History Tobacco Use Types Packs/Day Years Used Date Smoking Tobacco: Never Assessed Comments Unknown Sex and Gender Information Value Date Recorded Sex Assigned at Not on file Legal Sex Female 1:55 AM CARDIOLOGY TECHNOLOGIST Gender Identity Not on file Sexual Orientation Not on file documented as of this encounter Plan of Treatment Not on file documented as of this encounter Procedures Procedure Name Priority Date/Time Associated Diagnosis Comments SCAN - LABS 04/18/2016 12:00 AM CARDIOLOGY TECHNOLOGIST documented in this encounter Results * SCAN - LABS (04/18/2016 12:00 AM CARDIOLOGY TECHNOLOGIST) Narrative 04/18/2016 12:00 AM CARDIOLOGY TECHNOLOGIST Ordered by an unspecified provider. us Historical [...] documented as of this encounter Care Teams Dermatology Physician Assistant Relationship Specialty Start Date End Date Júnior Hilton MD PCP - General 04/26/17 10/20/18 Christine Denney MD [address] [address] PCP - General Family Medicine 10/21/18 07/22/19 Cari Ahumada NP [address] [facility] [address] [address] PCP - General 07/23/19 07/07/20 Christine Denney MD [address] [address] PCP - General 07/08/20 Sultan Maddy Baumann MD [address] [facility] [address] [address] Icicle Machine Operator Cardiovascular Disease 04/22/19 Derik Santana MD [address] [place] [address] [place] [address] Consulting Physician Obstetrics and Gynecology 04/21/21 08/05/24 Derik Santana MD [address] [address] Consulting Physician Obstetrics and Gynecology 12/20/21 08/05/24 documented as of this encounter
--- OUTSIDE RECORDS SUMMARY | 2024-10-13 08:46 | XMS_ITS | Clinical Summary ---
Author Organization [facility] Address [address] [place] [address] Care Team Providers Care Gang Investigator Name Role Phone Unavailable Primary Care Provider Unavailabl e Social History Tobacco Use Types Packs/Day Years Used Date Smoking Tobacco: Never Assessed Comments Unknown Sex and Gender Information Value Date Recorded Sex Assigned at Not on file Legal Sex Female 10:37 AM CDT Gender Identity Not on file Sexual Orientation Not on file Plan of Treatment Health Maintenance Due Date Last Done Comments Hepatitis C Virus (HCV) Screening 1945 TdaP Immunization 1945 Respiratory Syncytial Virus (RSV) Immunization (Adult) (1 - 1-dose 75+ series) 2021 SARS-COV-2 Immunization (2023- season) 2023 Influenza Immunization (#1) 2024 10/0 11/2019, 01/06/2019, 01/20/2018 DTaP/Tdap/Td Immunization Discontinued 12/13/2015 Pneumococcal Immunization (5 0+ years) Completed 01/20/2018, 11/06/2016 Pneumococcal Immunization Combined Discontinued 01/20/2018, 11/06/2016 Zoster Immunization Completed 04/15/2019, 11/25/2018, 12/10/2014 Hepatitis B Immunization Aged Out No longer eligible based on patient's age to complete this topic Human Papillomavirus (HPV) Immunization Aged Out No longer eligible based on patient's age to complete this topic Meningococcal Immunization (ACWY) Aged Out No longer eligible based on patient's age to complete this topic Rotavirus Immunization Aged Out No lo nger eligible based on patient's age to complete this topic
== END 2024-10-13 08:41 | disposition home or self-care (01) ==
PROVIDERS: PCP Family Medicine; Visit Provider Family Medicine
DX: Z78.0 Asymptomatic menopausal state (principal)
CPT/HCPCS: 77080